=== PATIENT | female | born 1935 | race Caucasian/White ===

== ENCOUNTER 2016-07-12 19:03 | Inpatient (IN) | payer MEDICAID, MEDICARE ==
[~2016-07-12] VITALS: Ht 162.6 cm; Wt 116.3 kg
[~2016-07-12 19:03] MED LIST: ALLO100T PO; AMLO5TAB2 PO; ATEN100T PO; CALC-205 PO; COLA100C PO; COUM1TAB17 PO; FLUT1SPR2; GUAI100S7 PO; HUMA100I5 SC; LANTINJ4 SC; LASI40TA PO; LISI40TAB PO; MILKSUS PO; MIRA3350 PO; OMEG100011 PO; OMEP20CA3 PO; SERT25TA85 PO; TYLE325T5 PO
[2016-07-12] MEDS ORDERED: LEVEMIR (INSULIN DETEMIR) 1 UNITS/0.01ML SC SCH (21:00)
[2016-07-12] MEDS ORDERED: CEFTAROLINE FOSAMIL 600 MG VIAL (TEFLARO) As Ordered ONE (21:18)
[2016-07-12 21:26] LABS: BASO % 0.5 % (0.0-1.0); EOS # 0.4 K/mm3 (0.0-0.50); EOS % 3.7 % (0.0-3.0); LARGE UNSTAINED CELL # 0.2 K/mm3 (0.0-0.4); LARGE UNSTAINED CELL % 1.9 % (0.0-4.0); LYMPH # 3.2 K/mm3 (1.5-4.5); LYMPH % 32.8 % (24.0-44.0); MEAN CORPUSCULAR HEMOGLOBIN 32.6 pg (27.0-33.0); MEAN CORPUSCULAR HGB CONC 32.6 g/dl (32.0-36.5); MEAN CORPUSCULAR VOLUME 99.8 fl (80.0-96.0); MONO # 0.4 K/mm3 (0.0-0.8); MONO % 3.7 % (0.0-5.0); NEUTROPHILS # 5.6 K/mm3 (1.8-7.7); NEUTROPHILS % 57.3 % (36.0-66.0); PLATELET COUNT, AUTOMATED 267 k/mm3 (150-450); RED CELL DISTRIBUTION WIDTH 13.6 % (11.5-14.5); WHITE BLOOD COUNT 9.7 K/mm3 (4.0-10.0)
[2016-07-12 21:42] LABS: CALCIUM LEVEL 8.8 MG/DL (8.8-10.2); CREATININE FOR GFR 2.24 MG/DL (0.55-1.02); GLOMERULAR FILTRATION RATE 22.3 (>32); POTASSIUM SERUM 3.8 MEQ/L (3.5-5.1)
[2016-07-12] MEDS ORDERED: BISACODYL 5 MG TAB PO PRN (21:45)
[2016-07-12] MEDS ORDERED: MORPHINE 2 MG/ML 1ML SYRINGE IV PRN (21:45)
[2016-07-12] MEDS ORDERED: ONDANSETRON 4MG/2ML VIAL (J2405) IV PRN (21:45)
[2016-07-12 21:46] LABS: ERYTHROCYTE SEDIMENTATION RATE 58 mm/hr (0-30)
[2016-07-12] MEDS ORDERED: MORPHINE 4 MG/ML 1ML SYRINGE As Ordered ONE (21:56)
[2016-07-12] MEDS ORDERED: ONDANSETRON 4MG/2ML VIAL (J2405) As Ordered ONE (21:56)
[2016-07-12] MEDS ORDERED: NS 1,000 ML IV ONE (22:00)
[2016-07-12] MEDS ORDERED: ATOR1TAB19 PO (22:14)
[2016-07-12] MEDS ORDERED: ACET50TAOT PO (22:14)
[2016-07-12] MEDS ORDERED: VITA50003 PO (22:14)
[2016-07-12] MEDS ORDERED: CALC1CAP31 PO (22:14)
[2016-07-12] MEDS ORDERED: RANO5TAB PO (22:14)
[2016-07-12] MEDS ORDERED: ATEN50TA2 PO (22:14)
[2016-07-12] MEDS ORDERED: XARE20TA PO (22:14)
[2016-07-12] MEDS ORDERED: DEXTROSE 50% 50 ML SYRINGE IV PRN (22:45)
[2016-07-12] MEDS ORDERED: MOM 30ML SUSPENSION UDC PO PRN (22:45)
[2016-07-12] MEDS ORDERED: GLUCOSE 4 GM CHEW TABLET PO PRN (22:45)
[2016-07-12] MEDS ORDERED: MIRALAX *UNIT DOSE* 17GM PACKET PO PRN (22:45)
[2016-07-12] MEDS ORDERED: GLUCAGON FOR INJ 1 MG VIAL (J1610) SC PRN (22:45)
[2016-07-12] MEDS ORDERED: DOCUSATE SODIUM 100 MG CAP PO PRN (22:45)
[2016-07-13 00:38] VITALS: BP 172/68
--- NOTE | 2016-07-13 00:38 | EDDOCDS ---
Physician Documentation [facility] Name: Roxi Christopher Age: 81 yrs Sex: Female : 1935 Arrival Date: 07/12/2016 Time: 19:03 Bed I4 / M4 Private MD: Karie Adorno Disposition: 07/12/16 21:19 Hospitalization ordered by Cheryl Sosa for Inpatient Admission. Preliminary diagnosis are Cellulitis of left upper limb, Contusion of left hand. - Bed requested for 4 [place]. - Status is Inpatient Admission. kas2 - Condition is Stable. - Problem is new. - Symptoms are unchanged. Historical: - Allergies: no known allergies; - Home Meds: 1. allopurinol 100 mg Oral tab once daily 2. atenolol 50 mg Oral tab 1 tab once daily 3. furosemide 40 mg Oral tab once daily 4. Sertraline 25 mg daily 5. [place]-3 oral cap 2 capsules twice a day 6. Lipitor 10 mg Oral tab once daily 7. Ranexa 500 mg oral Tb12 2 times per day 8. Xarelto 20 mg oral tab once daily 9. Lantus 50-52 units at night Sub-Q 10. Humalog sliding scale subcutaneous soln before each meal 11. colchicine 0.6 mg Oral tab - PMHx: Diabetes - IDDM: controlled; Gout; CHF; Hypertension; "leaky valve"; - PSHx: Knee Arthroplasty, Right; eye implants; - Social history: Smoking status: Patient states former smoker of tobacco. No barriers to communication noted, The patient speaks fluent Urdu, Speaks appropriately for age. - Family history: Not pertinent. - : The pt / caregiver states he / she is on anticoagulants: Xarelto Home medication list is obtained from the patient. - Exposure Risk Screening:: None identified. Vital Signs: 07/12 19:05 BP 207 / 81; Pulse 63; Resp 16; Temp 99.2(O); Pulse Ox 98% ; Weight 113.85 kg / 251 lbs cmb (R); Height 5 ft. 4 in. (162.56 cm) (R); Pain 7/10; 20:50 BP 158 / 78; Temp 97.4(O); ka4 23:03 BP 142 / 60; Pulse 65; Resp 18; Temp 98.0; Pulse Ox 99% on R/A; Pain 2/10; kas2 23:54 BP 138 / 68 LA Supine (man/lg); Pulse 70 MON; Resp 18 S; Temp 98.5(TE); Pulse Ox 98% on ka4 R/A; Pain 6/10; 19:05 Body Mass Index 43.08 (113.85 kg, 162.56 cm) cmb MDM: 20:47 IV Saline Lock ordered. mo1 20:47 -Blood Culture (Adults Only), peripheral from different site, or from device/port/PICC mo1 etc. if present ordered. 20:47 NS 0.9% 1000 ml IV at 250 mL/hr continuous ordered. mo1 20:48 CBC with Diff Ordered. EDMS 20:48 BMP Ordered. EDMS 20:48 CRP Ordered. EDMS 20:48 ESR Ordered. EDMS 20:49 -Blood Culture Ordered. EDMS 20:49 Wound Culture & GS - Most Extremities Ordered. EDMS 20:49 BED REQUEST+ADM ordered. EDMS 20:50 Misc Engineering Technologist Order ordered. mo1 21:00 Financial registration complete. jpb 21:00 [facility] Payment Agreement was scanned into [employer] and attached to record. jpb 21:03 Ceftaroline Fosamil 600 mg IV at bolus once over 30 mins; reconstitute with 20mL NS or mo1 SW, then dilulte in 50mL of NS, D5W or LR ordered. 21:20 Misc Engineering Technologist Order complete. ajs 21:21 -Blood Culture (Adults Only), peripheral from different site, or from device/port/PICC ajs etc. if present complete. 21:21 MRSA SCREEN Ordered. EDMS 21:22 BLOOD CULTURES Ordered. EDMS 21:40 morphine 4 mg IVP once ordered. mo1 21:40 Ondansetron 4 mg IVP once ordered. mo1 21:56 CBC WITH DIFFERENTIAL Ordered. EDMS 21:56 COMPLETE COMPHRENSIVE METABOLI Ordered. EDMS 21:57 PHYSICAL THERAPY EVAL & TREAT ordered. EDMS 21:58 CONSISTENT CARBOHYDRATES ordered. EDMS 23:37 Admission / Observation Status ordered. EDMS 07/13 00:08 C REACTIVE PROTEIN QUANTITATIV Ordered. EDMS Administered Medications: 07/12 21:03 CANCELLED (Other Intervention Used): Piperacillin-Tazobactam 3.375 grams IVPB once over mo1 30 mins; dilute in 50mL of NS or D5W 21:55 Drug: NS 0.9% 1000 ml [sodium chloride 0.9 % intravenous solution] Route: IV; Rate: 250 kas2 mL/hr; Site: right antecubital; 21:55 Drug: Ceftaroline Fosamil 600 mg [ceftaroline fosamil 600 mg intravenous solution] [facility]2 Route: IV; Rate: bolus; Infused Over: 30 mins; Site: right antecubital; 22:06 Drug: morphine 4 mg [morphine 4 mg/mL intravenous cartridge (1 mL)] Route: IVP; Site: kas2 right antecubital; 23:03 Follow up: BP 142 / 60; Pulse 65 bpm; Resp 18 bpm; Temp 98.0; Pulse Ox 99% RA; Pain [facility]2 08/18 Adult; Response: No Adverse Reaction; Pain is decreased 22:06 Drug: Ondansetron 4 mg [ondansetron HCl 2 mg/mL intravenous solution (2 mL)] Route: kas2 IVP; Site: right antecubital; Signatures: Dispatcher [employer] EDMS Janel Hernandez, RN RN Karie Hickey Joel jpb O'Hagan, Michael, PA PA mo1 Matilde MoreauRN Mone Angelo LPN LPN ka4 Rosa Isela Weinberg RN RN [facility]2 The chart was reviewed and I authenticate all verbal orders and agree with the evaluation and treatment provided.Corrections: (The following items were deleted from the chart) 21:03 20:47 Piperacillin-Tazobactam 3.375 grams IVPB once over 30 mins; dilute in 50mL of NS mo1 or D5W ordered. mo1 07/13 00:08 04 22:11 C REACTIVE PROTEIN QUANTITATIV ordered. EDMS EDMS Attachments: 21:00 [facility] [place] Payment Agreement isaac MTDD
--- NOTE | 2016-07-13 00:38 | EDDOCDS ---
Nurse's Notes [facility] Name: Roxi Christopher Age: 81 yrs Sex: Female : 1935 Arrival Date: 07/12/2016 Time: 19:03 Bed I4 / M4 Private MD: Karie Adorno Diagnosis: Cellulitis of left upper limb;Contusion of left hand Presentation: 07/12 19:08 Presenting complaint: Patient states: pt reports falling on [address], injuring ead left hand. Was seen by primary care today and instructed to come here. Pt has swelling, bruising, and and black wound approx 1 inch in diameter to top of left hand. markings around swelling done by primary. Adult Sepsis Screening: The patient does not have new or worsening altered mentation. Patient's respiratory rate is less than 22. Systolic blood pressure is greater than 100. Patient has a qSOFA score of 0- Negative Sepsis Screen. Suicide/Homicide risk assessment- the patient denies having any suicidal and/or homicidal ideations and does not present with any other emotional, behavioral or mental health complaints. Status: Patient is not a guest services coordinator or dependent. Transition of care: patient was not received from another setting of care. 19:08 Acuity: MICHAEL Level 3 ead 19:08 Method Of Arrival: Walkin/Carried/Asstd ead Triage Assessment: 19:14 General: Appears in no apparent distress, Behavior is appropriate for age, cooperative. ead Pain: Location: left hand and left arm Pain currently is 7 out of 10 on a pain scale. Neurological: No deficits noted. Respiratory: Airway is patent Respiratory effort is even, unlabored. Derm: bruising from left hand up left arm. swelling to left hand. closed wound to top of left hand. Musculoskeletal: Swelling present in left hand. Historical: - Allergies: no known allergies; - Home Meds: 1. allopurinol 100 mg Oral tab once daily 2. atenolol 50 mg Oral tab 1 tab once daily 3. furosemide 40 mg Oral tab once daily 4. Sertraline 25 mg daily 5. [place]-3 oral cap 2 capsules twice a day 6. Lipitor 10 mg Oral tab once daily 7. Ranexa 500 mg oral Tb12 2 times per day 8. Xarelto 20 mg oral tab once daily 9. Lantus 50-52 units at night Sub-Q 10. Humalog sliding scale subcutaneous soln before each meal 11. colchicine 0.6 mg Oral tab - PMHx: Diabetes - IDDM: controlled; Gout; CHF; Hypertension; "leaky valve"; - PSHx: Knee Arthroplasty, Right; eye implants; - Social history: Smoking status: Patient states former smoker of tobacco. No barriers to communication noted, The patient speaks fluent Ukrainian, Speaks appropriately for age. - Family history: Not pertinent. - : The pt / caregiver states he / she is on anticoagulants: Xarelto Home medication list is obtained from the patient. - Exposure Risk Screening:: None identified. Screenin:28 Advance Directives: Currently, there is a health care proxy, Kathy Turk ttb Granddaughter/HCP & Daughter/HCP Monik Jones & Mele Candi ---able to receive information however not HCP (Son). 07/13 00:11 Screening information is obtained from the patient. Fall risk: No risks identified. ka4 Assistance ADL's: requires no assistance with activities of daily living. Abuse/DV Screen: The patient / caregiver reports he/she is: not in a situation that causes fear, pain or injury. Nutritional screening: No deficits noted. home support is adequate. Assessment: 07/12 20:14 General: pt updated. Awake and alert. NAD noted. Awaiting PA visit. Family at bedside . ttb 20:37 General: Appears in no apparent distress, comfortable, Behavior is appropriate for age, ka4 cooperative, pleasant. Respiratory: Airway is patent Respiratory effort is even, unlabored, Respiratory pattern is regular, symmetrical. Derm: patients left hand red and swollen. Warm to touch. Large black area on top of hand. Dark purple bruising throughout fingers, hand, and back of arm. 21:53 General: Appears in no apparent distress, uncomfortable, well nourished, well groomed, kas2 Behavior is appropriate for age, cooperative. Pain: Location: left arm and left hand Pain currently is 6 out of 10 on a pain scale. Neurological: Level of Consciousness is awake, alert, Oriented to person, place, time. Cardiovascular: Heart tones present Rhythm is regular. Respiratory: Airway is patent Respiratory effort is even, unlabored, Respiratory pattern is regular, symmetrical, Breath sounds are clear bilaterally. Derm: Skin is intact, is healthy with good turgor, Skin is dry, Skin is pink, warm & dry. normal, Skin temperature is warm. 22:50 General: Patient resting in bed trying to sleep. Appears comfortable. No apparent kas2 distress noted. Call alanis within reach. Will continue to monitor.. 23:55 General: Appears in no apparent distress, uncomfortable, Behavior is appropriate for ka4 age, cooperative, pleasant. General:. Neurological: Level of Consciousness is awake, alert, obeys commands, Oriented to person, place, time. Respiratory: Airway is patent Respiratory effort is even, unlabored, Respiratory pattern is regular, symmetrical. Vital Signs: 19:05 BP 207 / 81; Pulse 63; Resp 16; Temp 99.2(O); Pulse Ox 98% ; Weight 113.85 kg (R); cmb Height 5 ft. 4 in. (162.56 cm) (R); Pain 7/10; 20:50 BP 158 / 78; Temp 97.4(O); ka4 23:03 BP 142 / 60; Pulse 65; Resp 18; Temp 98.0; Pulse Ox 99% on R/A; Pain 2/10; kas2 23:54 BP 138 / 68 LA Supine (man/lg); Pulse 70 MON; Resp 18 S; Temp 98.5(TE); Pulse Ox 98% on ka4 R/A; Pain 6/10; 19:05 Body Mass Index 43.08 (113.85 kg, 162.56 cm) [facility] Vitals: 19:05 Log In Time: July 12, 2016 at 19:03. b ED Course: 19:05 Patient visited by Rhiannon Rodney. cmb 19:05 Karie Adorno is Private Physician. cmb 19:05 Patient moved to Waiting cmb 19:07 Patient moved to Pre RCE cmb 19:09 Triage Initiated ead 19:44 Patient moved to Triage 2 jmb 20:11 Mo Moore PA is PHCP. mo1 20:11 Rip Moore DO is Attending Physician. mo1 20:14 Patient visited by Paty Sullivan RN. ttb 20:14 Patient visited by Paty Sullivan RN. ttb 20:23 Patient moved to I4 / M4 jmb 20:30 Patient visited by Paty Sullivan RN. ttb 20:32 Patient visited by Mo Moore PA. mo1 20:43 Patient visited by Mone Rogers LPN. ka4 21:00 [facility] Payment Agreement was scanned into [employer] and attached to record. jpb 21:13 CBC with Diff Sent. kas2 21:13 BMP Sent. kas2 21:13 -Blood Culture Sent. kas2 21:13 CRP Sent. kas2 21:13 ESR Sent. kas2 21:13 Wound Culture & GS - Most Extremities Sent. kas2 21:14 Patient visited by Rosa Isela Weinberg RN. kas2 21:14 Inserted saline lock: 20 gauge in right antecubital area and blood collected. The kas2 patient tolerated the procedure well. No procedures done that require assistance. 21:19 Cheryl Sosa is Hospitalizing Provider. mo1 21:39 BLOOD CULTURES Sent. ka4 21:55 Patient visited by Rosa Isela Weinberg RN. kas2 23:05 Patient visited by Rosa Isela Weinberg RN. kas2 23:48 Patient visited by Rosa Isela Weinberg RN. kas2 23:54 Patient visited by Rosa Isela Weinberg RN. kas2 23:55 Patient visited by Mone Rogers LPN. ka4 23:56 Patient visited by Mone Rogers LPN. ka4 01 00:11 The patient / caregiver is instructed regarding the plan of care and ED course. Patient ka4 has correct armband on for positive identification. Bed in low position. Call light in reach. Side rails up X 1. 00:11 IV is patent, is intact, is free of redness or swelling. Flushed right antecubital ka4 saline lock w/ 2 ml NS. Administered Medications: 07/12 21:03 CANCELLED (Other Intervention Used): Piperacillin-Tazobactam 3.375 grams IVPB once over mo1 30 mins; dilute in 50mL of NS or D5W :55 Drug: NS 0.9% 1000 ml [sodium chloride 0.9 % intravenous solution] Route: IV; Rate: 250 kas2 mL/hr; Site: right antecubital; :55 Drug: Ceftaroline Fosamil 600 mg [ceftaroline fosamil 600 mg intravenous solution] kas2 Route: IV; Rate: bolus; Infused Over: 30 mins; Site: right antecubital; 22:06 Drug: morphine 4 mg [morphine 4 mg/mL intravenous cartridge (1 mL)] Route: IVP; Site: [facility] right antecubital; 23:03 Follow up: BP 142 / 60; Pulse 65 bpm; Resp 18 bpm; Temp 98.0; Pulse Ox 99% RA; Pain [facility] 08/18 Adult; Response: No Adverse Reaction; Pain is decreased 22:06 Drug: Ondansetron 4 mg [ondansetron HCl 2 mg/mL intravenous solution (2 mL)] Route: kas2 IVP; Site: right antecubital; Order Results: Lab Order: CBC with Diff; SPEC'M 07/12/16 21:16 Test: WHITE BLOOD COUNT; Value: 9.7; Range: 4.0-10.0; Units: K/mm3; Status: F Test: RED BLOOD COUNT; Value: 3.49; Range: 4.00-5.40; Abnormal: Below low normal; Units: M/mm3; Status: F Test: HEMOGLOBIN; Value: 11.4; Range: 12.0-16.0; Abnormal: Below low normal; Units: g/dl; Status: F Test: HEMATOCRIT; Value: 34.8; Range: 36.0-47.0; Abnormal: Below low normal; Units: %; Status: F Test: MEAN CORPUSCULAR VOLUME; Value: 99.8; Range: 80.0-96.0; Abnormal: Above high normal; Units: fl; Status: F Test: MEAN CORPUSCULAR HEMOGLOBIN; Value: 32.6; Range: 27.0-33.0; Units: pg; Status: F Test: MEAN CORPUSCULAR HGB CONC; Value: 32.6; Range: 32.0-36.5; Units: g/dl; Status: F Test: RED CELL DISTRIBUTION WIDTH; Value: 13.6; Range: 11.5-14.5; Units: %; Status: F Test: PLATELET COUNT, AUTOMATED; Value: 267; Range: 150-450; Units: k/mm3; Status: F Test: NEUTROPHILS %; Value: 57.3; Range: 36.0-66.0; Units: %; Status: F Test: LYMPH %; Value: 32.8; Range: 24.0-44.0; Units: %; Status: F Test: MONO %; Value: 3.7; Range: 0.0-5.0; Units: %; Status: F Test: EOS %; Value: 3.7; Range: 0.0-3.0; Abnormal: Above high normal; Units: %; Status: F Test: BASO %; Value: 0.5; Range: 0.0-1.0; Units: %; Status: F Test: LARGE UNSTAINED CELL %; Value: 1.9; Range: 0.0-4.0; Units: %; Status: F Test: NEUTROPHILS #; Value: 5.6; Range: 1.8-7.7; Units: K/mm3; Status: F Test: LYMPH #; Value: 3.2; Range: 1.5-4.5; Units: K/mm3; Status: F Test: MONO #; Value: 0.4; Range: 0.0-0.8; Units: K/mm3; Status: F Test: EOS #; Value: 0.4; Range: 0.0-0.50; Units: K/mm3; Status: F Test: BASO #; Value: 0.0; Range: 0.0-0.2; Units: K/mm3; Status: F Test: LARGE UNSTAINED CELL #; Value: 0.2; Range: 0.0-0.4; Units: K/mm3; Status: F Lab Order: [facility]; SPEC'M 07/12/16 21:16 Test: GLUCOSE, FASTING; Value: 126; Range: 83-110; Abnormal: Above high normal; Units: MG/DL; Status: F Test: BLOOD UREA NITROGEN; Value: 40; Range: 7-18; Abnormal: Above high normal; Units: MG/DL; Status: F Test: CREATININE FOR GFR; Value: 2.24; Range: 0.55-1.02; Abnormal: Above high normal; Units: MG/DL; Status: F Test: GLOMERULAR FILTRATION RATE; Value: 22.3; Range: >32; Abnormal: Below low normal; Status: F Test: SODIUM LEVEL; Value: 145; Range: 136-145; Units: MEQ/L; Status: F Test: POTASSIUM SERUM; Value: 3.8; Range: 3.5-5.1; Units: MEQ/L; Status: F Test: CHLORIDE LEVEL; Value: 108; Range: 98-107; Abnormal: Above high normal; Units: MEQ/L; Status: F Test: CARBON DIOXIDE LEVEL; Value: 26; Range: 21-32; Units: MEQ/L; Status: F Test: ANION GAP; Value: 11; Range: 8-16; Units: MEQ/L; Status: F Test: CALCIUM LEVEL; Value: 8.8; Range: 8.8-10.2; Units: MG/DL; Status: F Test Note: ; Units are mL/min/1.73 m2 Chronic Kidney Disease Staging per NKF: Stage I & II GFR >=60 Normal to Mildly Decreased Stage III GFR 30-59 Moderately Decreased Stage IV GFR 15-29 Severely Decreased Stage V GFR <15 Very Little GFR Left ESRD GFR <15 on F[employer]ER Lab Order: CRP; SPEC'M 07/12/16 21:16 Test: C REACTIVE PROTEIN QUANTITATIV; Value: 7.03; Range: 0.00-0.30; Abnormal: Above high normal; Units: MG/DL; Status: F Lab Order: ESR; SPEC'M 07/12/16 21:16 Test: ERYTHROCYTE SEDIMENTATION RATE; Value: 58; Range: 0-30; Abnormal: Above high normal; Units: mm/hr; Status: F Outcome: 21:19 Decision to Hospitalize by Provider. mo1 07/13 00:11 Discharge Assessment: Patient awake, alert and oriented x 3. No cognitive and/or ka4 functional deficits noted. Patient verbalized understanding of disposition instructions. patient administered narcotics - yes. Patient was admitted to the hospital or transferred to another facility. The following High Risk Discharge criteria are identified: None. Admitted to Med/Surg accompanied by tech, via stretcher. Condition: stable. Property :Personal belongings accompany Pt. 00:11 No special radiology studies were completed. ka4 00:37 Patient left the ED. kas2 Signatures: Braulio Gustafson [place] cmb Conner, Teresa, RN RN ttb O'Hagan, Michael, PA PA mo1 Roger Hilton RN RN jmb Dunaway, Emily, RN RN ead Anderson, Kodie, LPN LPN ka4 Rosa Isela WeinbergRN RN kas2 Corrections: (The following items were deleted from the chart) 07/12 19:16 19:08 Presenting complaint: Patient states: pt reports falling on [address], ead injuring left hand. Was seen by primary care today and instructed to come here. Pt has swelling, bruising, and and black wound approx 1 inch in diameter to top of right hand. markings around swelling done by primary. ead MTDD
[2016-07-13 01:29] VITALS: BP 158/62
[2016-07-13] MEDS: PERCOCET 5MG/325MG TAB PO PRN ×4 (03:19→21:39)
--- NOTE | 2016-07-13 04:10 | HPE ---
DATE OF ADMISSION: 07/12/2016 PRIMARY CARE PHYSICIAN: Dr. Rosie Adorno ROLLER SHOP UTILITY WORKER: Dr. Valadez RAIL OPERATOR: Dr. Johnson CHIEF COMPLAINT: Left hand swelling with lesions. HISTORY OF PRESENT ILLNESS: Ms. Christopher is an 81-year-old female with multiple past medical history who presented to the emergency room (ER) due to experiencing lesions and swelling on the dorsum of the left hand. Patient expressed that the symptoms started about [place] Julianne when she was visiting her daughter. She expressed that she was walking up the steps and porch when she missed a step and fell and the dorsum of her hand hit the chair. At first, it was a small lesion on the dorsum of her left hand; however, it became increased. Patient is also on Xarelto. She expressed that the day after she noticed her fingers started swelling and became dark-colored, almost black. However, the color became associate director of development each day. Patient expressed that she also noticed a small amount of yellowish drainage from the lesion area and sometimes mixed with blood. Patient denies fever, chills, or night sweats. Patient expressed that the swelling started increasing gradually day by day. Patient was seen by primary care who ordered an MRI which was done today. MRI results were consistent with possible infection versus other etiology such as tumor, and primary care asked the patient to come to the ER. Patient expressed that the pain was constant since the trauma; it is 10/10 and patient used acetaminophen to control her pain due to chronic kidney disease. ALLERGIES: SULFASALAZINE. HOME MEDICATIONS: - acetaminophen 1000 mg by mouth every six hours as needed for pain - allopurinol 100 mg by mouth daily - atenolol 50 mg by mouth daily - atorvastatin 10 mg by mouth at bedtime - cholecalciferol 0.25 mcg by mouth daily - Colace 100 mg by mouth twice a day as needed for constipation - vitamin D 50,000 units by mouth once a week on Sunday - Lasix 40 mg by mouth daily - insulin 50 units subcutaneous at bedtime - Humalog sliding scale - Lantus 50 units subcutaneous at bedtime - milk of magnesia as needed for constipation - Butler-3, 1000 mg two caps by mouth twice a day - MiraLAX one pack by mouth daily - Ranexa 500 mg by mouth twice a day - Xarelto 20 mg by mouth at bedtime - sertraline 25 mg by mouth daily PAST MEDICAL HISTORY: 1. Hypercholesterolemia. 2. Gastroesophageal reflux disease (GERD). 3. Diabetes. 4. Hypertension. 5. History of rheumatic fever during childhood. 6. Chronic kidney disease stage 3. 7. Gout. PAST SURGICAL HISTORY: 1. Right knee arthroplasty. 2. Eye implants, right. SOCIAL HISTORY: Patient lives with her son. Patient expressed that she has not drank alcohol or smoked since 1958. Patient denies history of illicit drug use. Patient has not traveled recently outside of the [place]. FAMILY HISTORY: Patient has three sons and two daughters who are healthy for their age. Patient's father due to prostate cancer. Patient's mother due to stomach problems. Patient has one sister who is 89 years old and healthy. REVIEW OF SYSTEMS: GENERAL: Patient denies fevers, chills, night sweats, weight loss or weight gain. HEENT: Patient denies acute vision or hearing changes. Patient also denies problems with chewing food or sinusitis. NECK: Patient denies lumps, bumps, or decreased range of motion of her neck. HEART: Patient denies chest pain, racing or skipping heartbeat, or palpitations. LUNGS: Patient denies coughing, wheezing, or shortness of breath. ABDOMEN: Patient denies melena, hematochezia, hemoptysis, nausea, vomiting. EXTREMITIES: Patient expressed that she has swelling of the dorsum of her left hand, as well as erythema of her left hand and the left forearm posterior side, as well as pain with movement of her fingers. Patient also expressed that she has been experiencing mild numbness and tingling on her fingers of the left hand. Patient also expressed that she has been experiencing mild swelling of her lower extremities. NEURO: Patient denies history of transient ischemic attack (TIA), cerebrovascular accident (CVA), or seizure type activity. PHYSICAL EXAMINATION: VITAL SIGNS: Blood pressure 207/81, pulse 63, respiratory rate 18, temperature 99.2, pulse oximetry 98% on room air. Weight 113.85 kg, height 162.56 cm. Body mass index (BMI) 43.08. GENERAL APPEARANCE: Patient was lying in bed in no acute distress. Patient was awake, alert, and oriented to time, place and person. HEENT: Normocephalic, atraumatic. Pupils are equal. Oral mucosa is moist. NECK: Soft, supple, without lymphadenopathy or thyromegaly. HEART: Patient has a systolic murmur; normal S1, S2, and regular rate and rhythm. LUNGS: Clear breath sounds bilaterally. Good air movement. EXTREMITIES: Patient has pitting edema; however, patient has bilateral pulses in both lower extremities. Patient has swelling of the dorsum of her left hand with erythema of the dorsum of the left hand as well as the first four digits. Patient also has two lesions with scabs; the big one measures 4 cm x 3.5 cm, the other small lesion is 0.5 x 0.5 cm. Patient also has erythema at the posterior and medial surface of the forearm. NEURO: Cranial nerves II-XII was intact. LABORATORY DATA: White blood cells 9.7, red blood cells 3.49, hemoglobin 11.4, hematocrit 34.8, MCV 99.8, MCH 32.6, MCHC 32.6, RDW 13.6, platelet count 267, neutrophil percentage 37.3, lymphocyte percentage 32.8, monocyte percentage 3.8, eosinophil percentage 3.7, basophil percentage 0.5, leukocyte percentage 1.9. Sodium 145, potassium 3.8, chloride 108, carbon dioxide 26, anion gap 11, BUN 40, creatinine 2.24, glomerular filtration rate 22.3, fasting glucose 126, calcium 8.8, C-reactive protein 7.03. Blood culture is pending. MRSA culture is pending. Red cell scan is pending. Wound culture is pending at this time. IMAGING TECHNIQUES: MRI which was performed today at [facility] shows mixed signal mass involving the dorsum of the hand which is 6.4 cm x 1.6 cm x 6.4 cm. This is consistent with clinical suspicion of infection; however, other etiology such as tumor cannot be ruled out. ASSESSMENT AND PLAN: 1. Lesion of the dorsum of the left hand. At this time, we have consulted orthopedics, and appreciate Dr. Skinner's recommendation. Patient does not have leukocytosis; however, patient's C-reactive protein as well as erythrocyte sedimentation rate (ESR) have increased. At this point, MRSA coverage as well as wound culture is pending. Therefore, at this time, I have started the patient on Teflaro at 400 mg IV every 12 hours. Also, we will continue monitoring patient's CBC as well as C-reactive protein. At this time, the patient is stable. Patient does not have active bleeding. 2. Ebaur-xd-[id number] kidney disease. Patient has chronic kidney disease stage 3; however, patient's creatinine today has increased above her normal baseline; this is possibly secondary to dehydration versus medications. At this time, I have stopped Lasix as well as allopurinol. I started the patient on one liter of normal saline at the rate of 75. We will recheck renal function again tomorrow. At this time, the patient is stable. 3. Gout. Patient is on allopurinol; however, I have stopped the allopurinol due to abnormal renal function. At this time, the patient is stable and asymptomatic. 4. Hypertension. Patient was on Lasix; however, I have stopped Lasix due to abnormal renal function. We will continue patient on atenolol 50 mg by mouth daily. 5. Diabetes. We will continue the patient on home dose of Levemir 50 units subcutaneous at bedtime, also we will continue the patient on a consistent carbohydrate diet and sliding scale. 6. Hypercholesterolemia. We will continue the patient on Lipitor 10 mg by mouth at bedtime and Butler-3 fish oil one by mouth twice a day. 7. History of deep vein thrombosis (DVT). The patient was started on Xarelto; however, I have stopped Xarelto due to possibility of procedure, and started the patient on heparin 5000 units subcutaneous every eight hours. 8. History of rheumatic fever. Patient had rheumatic fever when she was young. At this time, the patient is asymptomatic. We will continue to monitor for any abnormal symptoms. 9. Deep vein thrombosis (DVT) prophylaxis. The patient is on heparin subcutaneous. 10. Gastroesophageal reflux disease (GERD). The patient is stable at this time. 11. Depression and anxiety. The patient is on Zoloft 25 mg by mouth daily. 12. Diastolic congestive heart failure. Patient is following with a assembler caterpillar spider. Patient had an echocardiogram which was done in May by her assembler caterpillar spider. Patient was on Lasix; however, I have stopped Lasix due to abnormal kidney function. We will continue the patient on Ranexa 500 mg by mouth twice a day as well as atenolol 50 mg by mouth daily. Patient was on Xarelto; however, I have stopped Xarelto due to possibility of operation. We will continue to monitor the patient for any abnormal symptoms. 13. Constipation. The patient is on bowel regimen. My preceptor for this patient encounter was Dr. Cheryl Sosa. The preceptor was physically present in the building during the encounter and was fully available as needed. All aspects of the patient interview, examination, medical decision making process, and medical care plan development were reviewed and approved by the preceptor. The preceptor is aware and concurs with the plan as stated in the body of this note and will attest to such by his co-signature.
[2016-07-13] MEDS: HEPARIN SOD (PORCINE) 5000 UNITS/ML VIAL SC SCH ×3 (05:23→21:38)
[2016-07-13 06:00] VITALS: BP 142/87
[2016-07-13] MEDS: HumaLOG INSULIN (NovoLOG) PER UNIT SC SCH ×4 (07:30→20:56)
[2016-07-13 07:34] LABS: BASO % 0.6 % (0.0-1.0); EOS # 0.4 K/mm3 (0.0-0.50); EOS % 4.2 % (0.0-3.0); LARGE UNSTAINED CELL # 0.3 K/mm3 (0.0-0.4); LARGE UNSTAINED CELL % 2.8 % (0.0-4.0); LYMPH # 3.8 K/mm3 (1.5-4.5); LYMPH % 40.3 % (24.0-44.0); MEAN CORPUSCULAR HEMOGLOBIN 32.5 pg (27.0-33.0); MEAN CORPUSCULAR HGB CONC 32.1 g/dl (32.0-36.5); MEAN CORPUSCULAR VOLUME 101.2 fl (80.0-96.0); MONO # 0.6 K/mm3 (0.0-0.8); MONO % 5.9 % (0.0-5.0); NEUTROPHILS # 4.4 K/mm3 (1.8-7.7); NEUTROPHILS % 46.2 % (36.0-66.0); PLATELET COUNT, AUTOMATED 217 k/mm3 (150-450); RED CELL DISTRIBUTION WIDTH 13.5 % (11.5-14.5); WHITE BLOOD COUNT 9.5 K/mm3 (4.0-10.0)
[2016-07-13 08:05] LABS: ALBUMIN 2.7 GM/DL (3.2-5.2); ALBUMIN/GLOBULIN RATIO 0.9 (1.00-1.93); BILIRUBIN,TOTAL 0.5 MG/DL (0.2-1.0); CALCIUM LEVEL 8.1 MG/DL (8.8-10.2); CREATININE FOR GFR 1.95 MG/DL (0.55-1.02); GLOMERULAR FILTRATION RATE 26.2 (>32); POTASSIUM SERUM 3.9 MEQ/L (3.5-5.1); TOTAL PROTEIN 5.7 GM/DL (6.4-8.2)
[2016-07-13] MEDS ORDERED: FUROSEMIDE 40 MG TAB PO SCH (09:00)
[2016-07-13] MEDS: CALCITRIOL 0.25 MCG CAP (S0169) PO SCH (10:14)
[2016-07-13] MEDS: CEFTAROLINE FOSAMIL 300 MG in D5W MINI-BAG PLUS 50 ML IV SCH ×2 (10:16→21:39)
[2016-07-13] MEDS: ATENOLOL 50 MG TAB PO SCH (10:16)
[2016-07-13] MEDS: SERTRALINE HCL 25 MG TABLET PO SCH (10:16)
[2016-07-13] MEDS: OMEGA-3 1050MG CAPSULE PO SCH ×2 (10:16→21:39)
--- NOTE | 2016-07-13 11:53 | CR ---
DATE OF CONSULTATION: 07/13/2016 CHIEF COMPLAINT: Left hand pain and swelling. HISTORY OF PRESENT ILLNESS: On 07/01/2016, Mrs. Christopher fell while entering her daughter's home. She hit the dorsal surface of her hand on a chair and sustained a small abrasion. She reports that over the next few days, she noticed a significant increase in swelling diffusely throughout her hand, fingers and wrist. She reports over the next couple of days, her hand became dark colored, almost black and the wound increased in size. She reported to her primary certified social workers in health care and an MRI was ordered for further evaluation. She reported to the emergency room on 2016 at the request of her primary certified social workers in health care and was admitted. Patient was started on IV antibiotics pending cultures. MEDICATIONS: - acetaminophen - allopurinol - atenolol - atorvastatin - cholecalciferol - Colace - vitamin D - Lasix - Lantus insulin - Humalog - Zoloft - Xarelto - Ranexa - [place] 3 vitamins - MiraLax - milk of magnesia as needed ALLERGIES: SULFASALAZINE. PAST MEDICAL HISTORY: Hypertension. Hyperlipidemia. Diastolic congestive heart failure. Chronic kidney disease. Gout. Diabetes. Anxiety and depression. Constipation. Gastroesophageal reflux disease (GERD). SURGICAL HISTORY: Right total knee arthroplasty (TKA). Right eye surgery. SOCIAL HISTORY: Patient has not used tobacco or alcohol in over 50 years. FAMILY HISTORY: Noncontributory. REVIEW OF SYSTEMS: Patient denies fevers, chills, nausea, vomiting or diarrhea. She denies any night sweats or changes in weight. No chest pain, shortness of breath, lightheaded or dizziness. Patient does have swelling and pain with erythema and ecchymosis to the dorsal surface of her left hand with mild tingling in those fingers. EXAMINATION: General appearance: Patient lying in bed and appears to be in no acute distress. She was comfortable, awake, alert, oriented. Patient was pleasant during visit. Head: Normocephalic Neck: Soft. No evidence of lymphadenopathy. Heart: Regular rate and rhythm with a systolic murmur. Lungs: Clear to auscultation bilaterally. No rales or wheezes noted. Extremities: Inspection of the left hand does show an approximately 4 x 4.5 area of eschar on the dorsal surface of the hand. There is no drainage noted from that site. There is some surrounding erythema and ecchymosis. Patient does have swelling from the fingertips up into the wrist at this time. She also had ecchymosis extending up the posterior forearm. Patient is able to move her wrist. She is able to move all of her fingers. Her capillary refill is right around 2 seconds. Her sensation is overall intact. The patient does have mild pitting edema to the bilateral lower extremities but normal pulses were palpated. LABORATORY DATA: Complete blood count: WBC is 9.5, red blood cell is 3.14. Hemoglobin 10.2, hematocrit 31.8. MCV 101.2, MCH 32.5, MCHC 32.1, RDW 13.5. Platelets 217. Neutrophil percent 46.2, lymphocyte percent 40.3, monocyte percent 5.9, eosinophil percent 4.2, basophil percent 0.6. Neutrophil number 4.4, lymphocyte number 3.8, monocyte number 0.6, eosinophil number 0.4, basophil number 0. Erythrocyte sedimentation rate 58. Comprehensive metabolic panel: Sodium 144, potassium 3.9, chloride 110, carbon dioxide 23, anion gap 11, BUN 37 , creatinine 1.95, glomerular filtration rate 26.2, fasting glucose 58, calcium 8.1, total bilirubin 0.5. AST 20, ALT 21, alkaline phosphatase 45, C-reactive protein 5.94, total protein 5.7, albumin 2.7, albumin globulin ratio 0.90. Wound culture gram stain shows few WBCs, no organism seen. Blood culture and Methicillin-resistant staphylococcus aureus (MRSA) screen currently pending. IMAGING: MRI performed at [facility] revealed mixed signal mass involving the dorsum of the hand which is 6.4 cm x 1.6 cm x 6.4 cm. This is consistent with clinical suspicion of infection, however, other etiology such as tumor cannot be ruled out. IMPRESSION: Lesion to the dorsal surface of the left hand with surrounding edema , erythema and ecchymosis. RECOMMENDATIONS: We will obtain x-rays of the left hand for further evaluation as they have not been done at this time. Patient will also continue with her broad coverage antibiotic while wound culture and Methicillin-resistant staphylococcus aureus (MRSA) culture are pending. I will discuss case with our campus monitor surgeon for further recommendations. JAVI
--- NOTE | 2016-07-13 12:11 | REP ---
LEFT WRIST: Four views left wrist performed. There is no evidence of acute fracture or dislocation. Diffuse mild spurring is seen of the distal radius and ulna and there is moderate joint space narrowing and subchondral sclerosis at the radiocarpal joint and distal radioulnar joint. There is mild diffuse joint space narrowing of the intercarpal joints with cystic changes in the scaphoid and lunate bones as well as the capitate and trapezium. There is no acute fracture or dislocation. IMPRESSION: No acute fracture or dislocation. 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 Signed by Ascencion Cota MD 07/13/2016 03:21 P
--- NOTE | 2016-07-13 12:13 | REP ---
LEFT HAND SERIES: Four views of the left hand are performed. I see no evidence of acute fracture or dislocation. There is moderate diffuse intercarpal joint space narrowing. There is mild diffuse narrowing of the metacarpophalangeal joints and interphalangeal joints with scattered spurring seen at the margins of the distal interphalangeal joints. There is significant soft tissue swelling dorsal to the metacarpals. IMPRESSION: No acute fracture or dislocation. Diffuse degenerative changes. Significant soft tissue swelling dorsal to the metacarpals. Signed by Ascencion Cota MD 07/13/2016 03:21 P
[2016-07-13] MEDS: RANOLAZINE 500 MG ER TAB PO SCH ×2 (12:27→21:38)
[2016-07-13 14:00] VITALS: BP 128/52
--- NOTE | 2016-07-13 17:32 | ECGEPIP ---
Stationary ECG Study [facility] Test Date: 2016-07-13 Pat Name: JOSÉ ANTONIO ANDERS Department: Room: [place] [address] Gender: F Film Processor: VINICIO : 1935 Requested By: MARY GARZA Order Number: [id number] Reading MD: Ryan Kyle Measurements Intervals [place] Rate: 66 P: 48 VA: 217 QRS: 7 QRSD: 90 T: 132 QT: 407 QTc: 427 Interpretive Statements NORMAL SINUS RHYTHM LA CONDUCTION DISTURBANCE FIRST DEGREE AV BLOCK NONSPECIFIC ST/T WAVE ABNORMALITIES NEW FROM 12/22/14 CLINICAL CORRELATION ADVISED RULE OUT MYOCARDIAL ISCHEMIA Electronically Signed On 07-13-2016 17:32:10 EST by Ryan Kyle
--- NOTE | 2016-07-13 18:00 | IPN ---
DATE: 07/13/2016 The patient is seen and examined. No acute events overnight. Continues to report left hand swelling and pain with warmth. Denies any fevers or chills. Denies any chest pain, pressure or discomfort. VITAL SIGNS: Temperature 97.2, pulse 63, respirations 20, blood pressure 120/52, pulse oximetry 94% on room air. LABORATORY DATA: WBC 9.5, hemoglobin and hematocrit 10.2/31.8, platelets 217. Chemistry: Sodium 144, potassium 3.9, chloride 110, bicarbonate 24, BUN 37, creatinine 1.95. PHYSICAL EXAMINATION: GENERAL: The patient is comfortable, in no acute distress. Alert and oriented times three. HEENT: Normocephalic, atraumatic. Pupils equal, round and reactive. Neck supple. CARDIAC: Systolic murmur 2/6. As per patient, is old. Regular rate and rhythm. Normal S1, S2. PULMONARY: Bilaterally clear to auscultation. ABDOMEN: Soft, nontender. Positive bowel sounds. EXTREMITIES: Left upper extremity, radial and ulnar pulses intact. Limited dexterity secondary to significant dorsal hand swelling. Extremities are warm bilaterally. Significant swelling and hard mass measured about 5 cm. Erythema and warmth. ASSESSMENT AND PLAN: This is an 81-year-old female patient with underlying medical history of dyslipidemia, gastroesophageal reflux disease (GERD), insulin-dependent diabetes, chronic kidney disease stage III, hypertension, history of rheumatic fever, gout, who was sent by primary care provider to the hospital with progressively worsening left hand, dorsum hand swelling and warmth. 1. Left hand, dorsum lesion with swelling. Possible cellulitis. Orthopedics consulted. X-ray has been done. Further followup as per orthopedic surgeon. Followup cultures. ESR, C-reactive protein. Antibiotic, the patient is on Teflaro. Continue to monitor. Holding anticoagulation given the possibility of hematoma and surgery. 2. Acute on chronic renal failure, baseline chronic kidney disease stage III. IV fluids initially given. BUN and creatinine has improved. Followup BUN and creatinine. Renally dose medications. Holding Lasix, as well as spironolactone. 3. Gout. Outpatient followup. Holding spironolactone given kidney function elevation. 4. Hypertension. Monitor blood pressure. Continue blood pressure medications. 5. History of deep vein thrombosis (DVT). As per patient, the patient had a DVT in 2014 and was on Xarelto for anticoagulation. Left hand swelling due to hematoma from injury. Given the patient is on anticoagulation along with worsening kidney function. Holding anticoagulation at this time. We will obtain ultrasound Doppler of bilateral lower extremities to rule out DVT. Obtain further records from primary care provider. If the patient elects to continue anticoagulation, we will consider alternative agents via Coumadin. In the meantime, we will continue to monitor. If ultrasound Doppler is positive for DVT, then patient will need heparin drip versus an IVC filter. In the meantime, we will continue to monitor. 6. Insulin-dependent diabetes. Reduce terminal worker insulin dosage given the patient with worsening kidney function. Followup fingersticks. Continue Levemir and mealtime insulin as per protocol. 7. Dyslipidemia. Continue statin. 8. History of rheumatic fever. Outpatient followup. 9. Gastroesophageal reflux disease (GERD). Continue home medications. 10. Depression and anxiety. Continue home medications. 11. Diastolic congestive heart failure (CHF). The patient is currently euvolemic. Continue Ranexa and atenolol. Outpatient followup. We will monitor strict input and output and daily weight. Diuretics on hold given worsening kidney function. 12. Gastroesophageal reflux disease (GERD). Continue home medications. 13. Constipation. Bowel regimen as prescribed. 14. DVT prophylaxis. Followup ultrasound Doppler. Currently on heparin subcutaneously for DVT prophylaxis. DISPOSITION PLANNING: Pending orthopedic followup, clinical improvement, followup C-reactive protein.
[2016-07-13] MEDS: LEVEMIR (INSULIN DETEMIR) 1 UNITS/0.01ML SC SCH (21:39)
[2016-07-13] MEDS: ATORVASTATIN 10 MG TAB PO SCH (21:39)
[2016-07-13 22:00] VITALS: BP 142/55
[2016-07-14] VITALS (9 sets, daily range): BP systolic 122–168; BP diastolic 48–81
[2016-07-14 07:29] LABS: BASO % 0.6 % (0.0-1.0); EOS # 0.2 K/mm3 (0.0-0.50); EOS % 2.8 % (0.0-3.0); LARGE UNSTAINED CELL # 0.2 K/mm3 (0.0-0.4); LYMPH # 2.9 K/mm3 (1.5-4.5); LYMPH % 30.7 % (24.0-44.0); MEAN CORPUSCULAR HEMOGLOBIN 31.7 pg (27.0-33.0); MEAN CORPUSCULAR HGB CONC 31.5 g/dl (32.0-36.5); MEAN CORPUSCULAR VOLUME 100.6 fl (80.0-96.0); MONO # 0.6 K/mm3 (0.0-0.8); MONO % 6.3 % (0.0-5.0); NEUTROPHILS # 5.1 K/mm3 (1.8-7.7); NEUTROPHILS % 57.7 % (36.0-66.0); PLATELET COUNT, AUTOMATED 199 k/mm3 (150-450); WHITE BLOOD COUNT 8.8 K/mm3 (4.0-10.0)
[2016-07-14] MEDS: HumaLOG INSULIN (NovoLOG) PER UNIT SC SCH ×4 (07:30→21:00)
--- NOTE | 2016-07-14 07:56 | REPUSA ---
CLINICAL HISTORY: R/o DVT. COMMENTS: Real time sonography with duplex doppler of the extremities bilaterally was performed with attention to the major deep venous structures. Evaluation reveals the common femoral, superficial femoral, popliteal and posterior tibial veins bila terally to be completely compressible without intraluminal thrombus. There is normal spontaneous phas ic flow and augmentation in all deep veins. The greater saphenous/common femoral vein junctions are p atent bilaterally. Incidental note is made of a left Begum's cyst measures 3.6 cm. IMPRESSION: No evidence of DVT in the lower extremities bilaterally. Left Begum's cyst. Thank you for your kind referral of this patient.
[2016-07-14 08:02] LABS: ALBUMIN 2.4 GM/DL (3.2-5.2); ALBUMIN/GLOBULIN RATIO 0.89 (1.00-1.93); BILIRUBIN,TOTAL 0.3 MG/DL (0.2-1.0); CREATININE FOR GFR 2.16 MG/DL (0.55-1.02); GLOMERULAR FILTRATION RATE 23.3 (>32); POTASSIUM SERUM 4.3 MEQ/L (3.5-5.1); TOTAL PROTEIN 5.1 GM/DL (6.4-8.2)
[2016-07-14] MEDS: RANOLAZINE 500 MG ER TAB PO SCH ×2 (08:33→23:00)
[2016-07-14] MEDS: CALCITRIOL 0.25 MCG CAP (S0169) PO SCH (08:34)
[2016-07-14] MEDS: CEFTAROLINE FOSAMIL 300 MG in D5W MINI-BAG PLUS 50 ML IV SCH ×2 (08:34→23:01)
[2016-07-14] MEDS: SERTRALINE HCL 25 MG TABLET PO SCH (08:34)
[2016-07-14] MEDS: OMEGA-3 1050MG CAPSULE PO SCH ×2 (08:34→23:00)
[2016-07-14] MEDS: ATENOLOL 50 MG TAB PO SCH (08:34)
[2016-07-14] MEDS: SENOKOT S TAB PO SCH ×2 (14:37→23:00)
[2016-07-14] MEDS ORDERED: BUPIVACAINE/EPIN 0.25% 30 ML VIAL As Ordered ONE (16:04)
[2016-07-14] MEDS ORDERED: ceFAZolin 1GM INJ (J0690) As Ordered ONE (16:04)
[2016-07-14] MEDS ORDERED: ceFAZolin 1GM INJ (J0690) IR ONE (16:30)
[2016-07-14] MEDS ORDERED: BUPIVACAINE/EPIN 0.25% 30 ML VIAL XX ONE (16:30)
[2016-07-14] MEDS ORDERED: PROPOFOL 200 MG/20 ML VIAL As Ordered ONE ×2 (16:31→16:34)
[2016-07-14] MEDS ORDERED: LIDOCAINE 2% INJ 100 MG/5 ML SDV (FOR ANES.) As Ordered ONE (16:31)
[2016-07-14] MEDS ORDERED: MIDAZOLAM INJ 2 MG/2 ML VIAL (J2250) As Ordered ONE (16:31)
[2016-07-14] MEDS ORDERED: KETAMINE HCL 200 MG/20 ML VIAL As Ordered ONE (16:31)
[2016-07-14] MEDS ORDERED: fentaNYL 100 MCG/2 ML INJECTION (J3010) As Ordered ONE ×2 (16:31→16:56)
[2016-07-14] MEDS ORDERED: PERCOCET 5MG/325MG TAB As Ordered ONE (16:56)
[2016-07-14] MEDS ORDERED: LR 1,000 ML IV SCH (17:15)
[2016-07-14] MEDS ORDERED: PERCOCET 5MG/325MG TAB PO PRN ×2 (17:15)
[2016-07-14] MEDS ORDERED: fentaNYL 100 MCG/2 ML INJECTION (J3010) IV PRN (17:15)
--- NOTE | 2016-07-14 17:53 | IPN ---
DATE: 07/14/2016 Patient seen and examined. No acute events overnight. Continues to report left hand pain. Denies any fevers or chills. Denies any chest pain, pressure or discomfort. Patient nothing by mouth for operating room (OR). VITAL SIGNS: Temperature 97.6, pulse 85, respirations 16, blood pressure 158/69, pulse oximetry 93% on room air. LABORATORY DATA: WBC 8.8, hemoglobin and hematocrit 9.2 over 29.2, platelets 199. Chemistry: Sodium 142, potassium 4.3, chloride 109, bicarbonate 24, BUN 35, creatinine 2.16. C-reactive protein 7.4. PHYSICAL EXAMINATION: GENERAL: Patient is comfortable, in no acute distress. Alert and oriented times three. HEENT: Normocephalic, atraumatic. Pupils equal, round and reactive. NECK: Supple. CARDIAC: 2/6 systolic murmur. Per patient, was old. Regular rate and rhythm. Normal S1, S2. PULMONARY: Bilaterally clear to auscultation. ABDOMEN: Soft, nontender. Positive bowel sounds. EXTREMITIES: Left upper extremity is swollen dorsal surface, with swelling, erythema and eschar, swollen, mass measuring about 5-6 cm in diameter with a large eschar. Radial and ulnar pulses intact. Sensation intact. Able to move all her fingers with some limitation due to swelling. ASSESSMENT AND PLAN: This is an 81-year-old female patient with underlying medical history of dyslipidemia, gastroesophageal reflux disease (GERD), insulin-dependent diabetes, chronic kidney disease, stage III, hypertension, history of rheumatic fever, gout, was sent by primary care provider to hospital with progressive worsening left dorsum hand swelling and warmth with also recent injury to the left hand. Problems: 1. Left hand dorsum injury and swelling. Possible cellulitis with possible underlying hematoma. Orthopedics consulted. Going to operating room today. The case was discussed with Dr. Dwayne Simmons. Likely hematoma. Cultures have been sent. If eschar does not improve, possibly need plastic surgery. Otherwise the patient is scheduled to followup with Dr. Simmons in 5-7 days in the office. Followup CRP, ESR. Antibiotics as ordered. Followup cultures. Hold anticoagulation given hematoma. 2. Acute on chronic renal failure. Baseline chronic kidney disease, stage III. IV fluids initially given. Followup BUN and creatinine. Renally dose medication. Withholding Lasix as well as spironolactone. Will continue to follow. 3. Gout. Outpatient followup. Withholding allopurinol given elevated kidney function. Restart if needed. 4. Hypertension. Continue blood pressure medications. Monitor blood pressure. 5. History of deep vein thrombosis (DVT). Ultrasound Doppler negative for DVT. The patient has DVT since 2014 and was on Xarelto for anticoagulation. Left hand swelling is possibly due to hematoma from injury. Given that the patient had anticoagulation for more than a year and this is the first episode of DVT with as per patient, prolonged inability as inciting event, will hold Xarelto for now. Currently ultrasound Doppler is negative for DVT. Will need outpatient followup to consider if the patient needs long-term anticoagulation. 6. Insulin-dependent diabetes. Dosage has been adjusted. Followup fingersticks. Continue basal bolus insulin. 7. Dyslipidemia. Continue statin. 8. History of rheumatic fever. Outpatient followup. 9. Gastroesophageal reflux disease (GERD). Continue home medication. 10. Depression and anxiety. Continue home medication. 11. Diastolic congestive heart failure. Patient currently euvolemic. Continue Ranexa and atenolol. Outpatient followup. Monitor strict intake and output, daily weight. Diuretic has been on hold given worsening kidney function. 12. Constipation. Bowel regimen as prescribed. 13. Deep vein thrombosis (DVT) prophylaxis. Heparin subcu. DISPOSITION PLANNING: Pending cultures, clinical improvement, likely discharge in the next 2-3 days and orthopedic followup for wound care.
[2016-07-14] MEDS: ATORVASTATIN 10 MG TAB PO SCH (23:00)
[2016-07-14] MEDS: ACETAMINOPHEN TAB 650MG DOSE (2X325MG) PO PRN (23:00)
[2016-07-14] MEDS: LEVEMIR (INSULIN DETEMIR) 1 UNITS/0.01ML SC SCH (23:01)
[2016-07-15] VITALS (8 sets, daily range): BP systolic 102–171; BP diastolic 49–77
--- NOTE | 2016-07-15 01:38 | EDDOCDS ---
Physician Documentation [facility] Name: Roxi Christopher Age: 81 yrs Sex: Female : 1935 Arrival Date: 07/12/2016 Time: 19:03 Bed I4 / M4 Private MD: Karie Adorno Disposition: 07/12/16 21:19 Hospitalization ordered by Cheryl Sosa for Inpatient Admission. Preliminary diagnosis are Cellulitis of left upper limb, Contusion of left hand. - Bed requested for 4 [place]. - Status is Inpatient Admission. kas2 - Condition is Stable. - Problem is new. - Symptoms are unchanged. Historical: - Allergies: no known allergies; - Home Meds: 1. allopurinol 100 mg Oral tab once daily 2. atenolol 50 mg Oral tab 1 tab once daily 3. furosemide 40 mg Oral tab once daily 4. Sertraline 25 mg daily 5. Scalf-3 oral cap 2 capsules twice a day 6. Lipitor 10 mg Oral tab once daily 7. Ranexa 500 mg oral Tb12 2 times per day 8. Xarelto 20 mg oral tab once daily 9. Lantus 50-52 units at night Sub-Q 10. Humalog sliding scale subcutaneous soln before each meal 11. colchicine 0.6 mg Oral tab - PMHx: Diabetes - IDDM: controlled; Gout; CHF; Hypertension; "leaky valve"; - PSHx: Knee Arthroplasty, Right; eye implants; - Social history: Smoking status: Patient states former smoker of tobacco. No barriers to communication noted, The patient speaks fluent Welsh, Speaks appropriately for age. - Family history: Not pertinent. - : The pt / caregiver states he / she is on anticoagulants: Xarelto Home medication list is obtained from the patient. - Exposure Risk Screening:: None identified. Vital Signs: 07/12 19:05 BP 207 / 81; Pulse 63; Resp 16; Temp 99.2(O); Pulse Ox 98% ; Weight 113.85 kg / 251 lbs cmb (R); Height 5 ft. 4 in. (162.56 cm) (R); Pain 7/10; 20:50 BP 158 / 78; Temp 97.4(O); ka4 23:03 BP 142 / 60; Pulse 65; Resp 18; Temp 98.0; Pulse Ox 99% on R/A; Pain 2/10; kas2 23:54 BP 138 / 68 LA Supine (man/lg); Pulse 70 MON; Resp 18 S; Temp 98.5(TE); Pulse Ox 98% on ka4 R/A; Pain 6/10; 19:05 Body Mass Index 43.08 (113.85 kg, 162.56 cm) cmb MDM: 20:47 IV Saline Lock ordered. mo1 20:47 -Blood Culture (Adults Only), peripheral from different site, or from device/port/PICC mo1 etc. if present ordered. 20:47 NS 0.9% 1000 ml IV at 250 mL/hr continuous ordered. mo1 20:48 CBC with Diff Ordered. EDMS 20:48 BMP Ordered. EDMS 20:48 CRP Ordered. EDMS 20:48 ESR Ordered. EDMS 20:49 -Blood Culture Ordered. EDMS 20:49 Wound Culture & GS - Most Extremities Ordered. EDMS 20:49 BED REQUEST+ADM ordered. EDMS 20:50 Misc Director Field Services Order ordered. mo1 21:00 Financial registration complete. jpb 21:00 [facility] Payment Agreement was scanned into ITN and attached to record. jpb 21:03 Ceftaroline Fosamil 600 mg IV at bolus once over 30 mins; reconstitute with 20mL NS or mo1 SW, then dilulte in 50mL of NS, D5W or LR ordered. 21:20 Misc Director Field Services Order complete. ajs 21:21 -Blood Culture (Adults Only), peripheral from different site, or from device/port/PICC ajs etc. if present complete. 21:21 MRSA SCREEN Ordered. EDMS 21:22 BLOOD CULTURES Ordered. EDMS 21:40 morphine 4 mg IVP once ordered. mo1 21:40 Ondansetron 4 mg IVP once ordered. mo1 21:56 CBC WITH DIFFERENTIAL Ordered. EDMS 21:56 COMPLETE COMPHRENSIVE METABOLI Ordered. EDMS 21:57 PHYSICAL THERAPY EVAL & TREAT ordered. EDMS 21:58 CONSISTENT CARBOHYDRATES ordered. EDMS 23:37 Admission / Observation Status ordered. EDMS 07/13 00:08 C REACTIVE PROTEIN QUANTITATIV Ordered. EDMS 07/14 08:44 T-Sheet-- Draft Copy was scanned into ITN and attached to record. gb Administered Medications: 07/12 21:03 CANCELLED (Other Intervention Used): Piperacillin-Tazobactam 3.375 grams IVPB once over mo1 30 mins; dilute in 50mL of NS or D5W 21:55 Drug: NS 0.9% 1000 ml [sodium chloride 0.9 % intravenous solution] Route: IV; Rate: 250 kas2 mL/hr; Site: right antecubital; 21:55 Drug: Ceftaroline Fosamil 600 mg [ceftaroline fosamil 600 mg intravenous solution] [facility] Route: IV; Rate: bolus; Infused Over: 30 mins; Site: right antecubital; 22:06 Drug: morphine 4 mg [morphine 4 mg/mL intravenous cartridge (1 mL)] Route: IVP; Site: kas2 right antecubital; 23:03 Follow up: BP 142 / 60; Pulse 65 bpm; Resp 18 bpm; Temp 98.0; Pulse Ox 99% RA; Pain [facility] 08/18 Adult; Response: No Adverse Reaction; Pain is decreased 22:06 Drug: Ondansetron 4 mg [ondansetron HCl 2 mg/mL intravenous solution (2 mL)] Route: kas2 IVP; Site: right antecubital; Signatures: Dispatcher [employer] EDMS Janel Hernandez RN RN daq Barnhardt, Gloria, Karie Hu Joel jpb O'Hagan, Michael, PA PA mo1 Matilde Moreau RN RN ead Anderson, Kodie, LPN LPN ka4 Smith, Kim, RN RN kas2 The chart was reviewed and I authenticate all verbal orders and agree with the evaluation and treatment provided.Corrections: (The following items were deleted from the chart) 21:03 20:47 Piperacillin-Tazobactam 3.375 grams IVPB once over 30 mins; dilute in 50mL of NS mo1 or D5W ordered. mo1 07/13 00:08 07/12 22:11 C REACTIVE PROTEIN QUANTITATIV ordered. EDMS EDMS Attachments: 21:00 [facility] Payment Agreement jpb 07/14 08:44 T-Sheet-- Draft Copy gb Chart Complete MTDD
--- NOTE | 2016-07-15 01:39 | EDDOCDS ---
Physician Documentation [facility] Name: Roxi Christopher Age: 81 yrs Sex: Female : 1935 Arrival Date: 07/12/2016 Time: 19:03 Bed I4 / M4 Private MD: Karie Adorno Disposition: 07/12/16 21:19 Hospitalization ordered by Cheryl Sosa for Inpatient Admission. Preliminary diagnosis are Cellulitis of left upper limb, Contusion of left hand. - Bed requested for 4 [place]. - Status is Inpatient Admission. kas2 - Condition is Stable. - Problem is new. - Symptoms are unchanged. Historical: - Allergies: no known allergies; - Home Meds: 1. allopurinol 100 mg Oral tab once daily 2. atenolol 50 mg Oral tab 1 tab once daily 3. furosemide 40 mg Oral tab once daily 4. Sertraline 25 mg daily 5. [place]-3 oral cap 2 capsules twice a day 6. Lipitor 10 mg Oral tab once daily 7. Ranexa 500 mg oral Tb12 2 times per day 8. Xarelto 20 mg oral tab once daily 9. Lantus 50-52 units at night Sub-Q 10. Humalog sliding scale subcutaneous soln before each meal 11. colchicine 0.6 mg Oral tab - PMHx: Diabetes - IDDM: controlled; Gout; CHF; Hypertension; "leaky valve"; - PSHx: Knee Arthroplasty, Right; eye implants; - Social history: Smoking status: Patient states former smoker of tobacco. No barriers to communication noted, The patient speaks fluent Ukrainian, Speaks appropriately for age. - Family history: Not pertinent. - : The pt / caregiver states he / she is on anticoagulants: Xarelto Home medication list is obtained from the patient. - Exposure Risk Screening:: None identified. Vital Signs: 07/12 19:05 BP 207 / 81; Pulse 63; Resp 16; Temp 99.2(O); Pulse Ox 98% ; Weight 113.85 kg / 251 lbs cmb (R); Height 5 ft. 4 in. (162.56 cm) (R); Pain 7/10; 20:50 BP 158 / 78; Temp 97.4(O); ka4 23:03 BP 142 / 60; Pulse 65; Resp 18; Temp 98.0; Pulse Ox 99% on R/A; Pain 2/10; kas2 23:54 BP 138 / 68 LA Supine (man/lg); Pulse 70 MON; Resp 18 S; Temp 98.5(TE); Pulse Ox 98% on ka4 R/A; Pain 6/10; 19:05 Body Mass Index 43.08 (113.85 kg, 162.56 cm) cmb MDM: 20:47 IV Saline Lock ordered. mo1 20:47 -Blood Culture (Adults Only), peripheral from different site, or from device/port/PICC mo1 etc. if present ordered. 20:47 NS 0.9% 1000 ml IV at 250 mL/hr continuous ordered. mo1 20:48 CBC with Diff Ordered. EDMS 20:48 BMP Ordered. EDMS 20:48 CRP Ordered. EDMS 20:48 ESR Ordered. EDMS 20:49 -Blood Culture Ordered. EDMS 20:49 Wound Culture & GS - Most Extremities Ordered. EDMS 20:49 BED REQUEST+ADM ordered. EDMS 20:50 Misc Bookkeeping Machine Mechanic Order ordered. mo1 21:00 Financial registration complete. jpb 21:00 [facility] Payment Agreement was scanned into [employer] and attached to record. jpb 21:03 Ceftaroline Fosamil 600 mg IV at bolus once over 30 mins; reconstitute with 20mL NS or mo1 SW, then dilulte in 50mL of NS, D5W or LR ordered. 21:20 Misc Bookkeeping Machine Mechanic Order complete. ajs 21:21 -Blood Culture (Adults Only), peripheral from different site, or from device/port/PICC ajs etc. if present complete. 21:21 MRSA SCREEN Ordered. EDMS 21:22 BLOOD CULTURES Ordered. EDMS 21:40 morphine 4 mg IVP once ordered. mo1 21:40 Ondansetron 4 mg IVP once ordered. mo1 21:56 CBC WITH DIFFERENTIAL Ordered. EDMS 21:56 COMPLETE COMPHRENSIVE METABOLI Ordered. EDMS 21:57 PHYSICAL THERAPY EVAL & TREAT ordered. EDMS 21:58 CONSISTENT CARBOHYDRATES ordered. EDMS 23:37 Admission / Observation Status ordered. EDMS 07/13 00:08 C REACTIVE PROTEIN QUANTITATIV Ordered. EDMS 07/14 08:44 T-Sheet-- Draft Copy was scanned into [employer] and attached to record. gb Administered Medications: 07/12 21:03 CANCELLED (Other Intervention Used): Piperacillin-Tazobactam 3.375 grams IVPB once over mo1 30 mins; dilute in 50mL of NS or D5W 21:55 Drug: NS 0.9% 1000 ml [sodium chloride 0.9 % intravenous solution] Route: IV; Rate: 250 kas2 mL/hr; Site: right antecubital; 21:55 Drug: Ceftaroline Fosamil 600 mg [ceftaroline fosamil 600 mg intravenous solution] [facility] Route: IV; Rate: bolus; Infused Over: 30 mins; Site: right antecubital; 22:06 Drug: morphine 4 mg [morphine 4 mg/mL intravenous cartridge (1 mL)] Route: IVP; Site: kas2 right antecubital; 23:03 Follow up: BP 142 / 60; Pulse 65 bpm; Resp 18 bpm; Temp 98.0; Pulse Ox 99% RA; Pain [facility] 08/18 Adult; Response: No Adverse Reaction; Pain is decreased 22:06 Drug: Ondansetron 4 mg [ondansetron HCl 2 mg/mL intravenous solution (2 mL)] Route: kas2 IVP; Site: right antecubital; Signatures: Dispatcher [employer] EDMS Janel Hernandez RN RN daq Barnhardt, Gloria, Karie Hu Joel jpb O'Hagan, Michael, PA PA mo1 Matilde Moreau RN RN ead Anderson, Kodie, LPN LPN ka4 Smith, Kim, RN RN kas2 The chart was reviewed and I authenticate all verbal orders and agree with the evaluation and treatment provided.Corrections: (The following items were deleted from the chart) 21:03 20:47 Piperacillin-Tazobactam 3.375 grams IVPB once over 30 mins; dilute in 50mL of NS mo1 or D5W ordered. mo1 07/13 00:08 07/12 22:11 C REACTIVE PROTEIN QUANTITATIV ordered. EDMS EDMS Attachments: 21:00 [facility] Payment Agreement jpb 07/14 08:44 T-Sheet-- Draft Copy gb Chart Complete MTDD
--- NOTE | 2016-07-15 01:39 | EDDOCDS ---
Nurse's Notes [facility] Name: Roxi Christopher Age: 81 yrs Sex: Female : 1935 Arrival Date: 07/12/2016 Time: 19:03 Bed I4 / M4 Private MD: Karie Adorno Diagnosis: Cellulitis of left upper limb;Contusion of left hand Presentation: 07/12 19:08 Presenting complaint: Patient states: pt reports falling on [address]ne, injuring ead left hand. Was seen by primary care today and instructed to come here. Pt has swelling, bruising, and and black wound approx 1 inch in diameter to top of left hand. markings around swelling done by primary. Adult Sepsis Screening: The patient does not have new or worsening altered mentation. Patient's respiratory rate is less than 22. Systolic blood pressure is greater than 100. Patient has a qSOFA score of 0- Negative Sepsis Screen. Suicide/Homicide risk assessment- the patient denies having any suicidal and/or homicidal ideations and does not present with any other emotional, behavioral or mental health complaints. Status: Patient is not a technical services analyst or dependent. Transition of care: patient was not received from another setting of care. 19:08 Acuity: MICHAEL Level 3 ead 19:08 Method Of Arrival: Walkin/Carried/Asstd ead Triage Assessment: 19:14 General: Appears in no apparent distress, Behavior is appropriate for age, cooperative. ead Pain: Location: left hand and left arm Pain currently is 7 out of 10 on a pain scale. Neurological: No deficits noted. Respiratory: Airway is patent Respiratory effort is even, unlabored. Derm: bruising from left hand up left arm. swelling to left hand. closed wound to top of left hand. Musculoskeletal: Swelling present in left hand. Historical: - Allergies: no known allergies; - Home Meds: 1. allopurinol 100 mg Oral tab once daily 2. atenolol 50 mg Oral tab 1 tab once daily 3. furosemide 40 mg Oral tab once daily 4. Sertraline 25 mg daily 5. Melrose-3 oral cap 2 capsules twice a day 6. Lipitor 10 mg Oral tab once daily 7. Ranexa 500 mg oral Tb12 2 times per day 8. Xarelto 20 mg oral tab once daily 9. Lantus 50-52 units at night Sub-Q 10. Humalog sliding scale subcutaneous soln before each meal 11. colchicine 0.6 mg Oral tab - PMHx: Diabetes - IDDM: controlled; Gout; CHF; Hypertension; "leaky valve"; - PSHx: Knee Arthroplasty, Right; eye implants; - Social history: Smoking status: Patient states former smoker of tobacco. No barriers to communication noted, The patient speaks fluent Romanian, Speaks appropriately for age. - Family history: Not pertinent. - : The pt / caregiver states he / she is on anticoagulants: Xarelto Home medication list is obtained from the patient. - Exposure Risk Screening:: None identified. Screenin:28 Advance Directives: Currently, there is a health care proxy, Kathy Turk ttb Granddaughter/HCP & Daughter/HCP Monik Jones & Mele Candi ---able to receive information however not HCP (Son). 07/13 00:11 Screening information is obtained from the patient. Fall risk: No risks identified. ka4 Assistance ADL's: requires no assistance with activities of daily living. Abuse/DV Screen: The patient / caregiver reports he/she is: not in a situation that causes fear, pain or injury. Nutritional screening: No deficits noted. home support is adequate. Assessment: 07/12 20:14 General: pt updated. Awake and alert. NAD noted. Awaiting PA visit. Family at bedside . ttb 20:37 General: Appears in no apparent distress, comfortable, Behavior is appropriate for age, ka4 cooperative, pleasant. Respiratory: Airway is patent Respiratory effort is even, unlabored, Respiratory pattern is regular, symmetrical. Derm: patients left hand red and swollen. Warm to touch. Large black area on top of hand. Dark purple bruising throughout fingers, hand, and back of arm. 21:53 General: Appears in no apparent distress, uncomfortable, well nourished, well groomed, kas2 Behavior is appropriate for age, cooperative. Pain: Location: left arm and left hand Pain currently is 6 out of 10 on a pain scale. Neurological: Level of Consciousness is awake, alert, Oriented to person, place, time. Cardiovascular: Heart tones present Rhythm is regular. Respiratory: Airway is patent Respiratory effort is even, unlabored, Respiratory pattern is regular, symmetrical, Breath sounds are clear bilaterally. Derm: Skin is intact, is healthy with good turgor, Skin is dry, Skin is pink, warm & dry. normal, Skin temperature is warm. 22:50 General: Patient resting in bed trying to sleep. Appears comfortable. No apparent kas2 distress noted. Call alanis within reach. Will continue to monitor.. 23:55 General: Appears in no apparent distress, uncomfortable, Behavior is appropriate for ka4 age, cooperative, pleasant. General:. Neurological: Level of Consciousness is awake, alert, obeys commands, Oriented to person, place, time. Respiratory: Airway is patent Respiratory effort is even, unlabored, Respiratory pattern is regular, symmetrical. Vital Signs: 19:05 BP 207 / 81; Pulse 63; Resp 16; Temp 99.2(O); Pulse Ox 98% ; Weight 113.85 kg (R); cmb Height 5 ft. 4 in. (162.56 cm) (R); Pain 7/10; 20:50 BP 158 / 78; Temp 97.4(O); ka4 23:03 BP 142 / 60; Pulse 65; Resp 18; Temp 98.0; Pulse Ox 99% on R/A; Pain 2/10; kas2 23:54 BP 138 / 68 LA Supine (man/lg); Pulse 70 MON; Resp 18 S; Temp 98.5(TE); Pulse Ox 98% on ka4 R/A; Pain 6/10; 19:05 Body Mass Index 43.08 (113.85 kg, 162.56 cm) [facility] Vitals: 19:05 Log In Time: July 12, 2016 at 19:03. b ED Course: 19:05 Patient visited by Rhiannon Rodney. cmb 19:05 Karie Adorno is Private Physician. cmb 19:05 Patient moved to Waiting cmb 19:07 Patient moved to Pre RCE cmb 19:09 Triage Initiated ead 19:44 Patient moved to Triage 2 jmb 20:11 Mo Moore PA is PHCP. mo1 20:11 Rip Moore DO is Attending Physician. mo1 20:14 Patient visited by Paty Sullivan RN. ttb 20:14 Patient visited by Paty Sullivan RN. ttb 20:23 Patient moved to I4 / M4 jmb 20:30 Patient visited by Paty Sullivan RN. ttb 20:32 Patient visited by Mo Moore PA. mo1 20:43 Patient visited by Mone Rogers LPN. ka4 21:00 [facility] Payment Agreement was scanned into Deed and attached to record. jpb 21:13 CBC with Diff Sent. kas2 21:13 BMP Sent. kas2 21:13 -Blood Culture Sent. kas2 21:13 CRP Sent. kas2 21:13 ESR Sent. kas2 21:13 Wound Culture & GS - Most Extremities Sent. kas2 21:14 Patient visited by Rosa Isela Weinberg RN. kas2 21:14 Inserted saline lock: 20 gauge in right antecubital area and blood collected. The kas2 patient tolerated the procedure well. No procedures done that require assistance. 21:19 Cheryl Sosa is Hospitalizing Provider. mo1 21:39 BLOOD CULTURES Sent. ka4 21:55 Patient visited by Rosa Isela Weinberg RN. kas2 23:05 Patient visited by Rosa Isela Weinberg RN. kas2 23:48 Patient visited by Rosa Isela Weinberg RN. kas2 23:54 Patient visited by Rosa Isela Weinberg RN. kas2 23:55 Patient visited by Mone Rogers LPN. ka4 23:56 Patient visited by Mone Rogers LPN. ka4 01 00:11 The patient / caregiver is instructed regarding the plan of care and ED course. Patient ka4 has correct armband on for positive identification. Bed in low position. Call light in reach. Side rails up X 1. 00:11 IV is patent, is intact, is free of redness or swelling. Flushed right antecubital ka4 saline lock w/ 2 ml NS. 07/14 08:44 T-Sheet-- Draft Copy was scanned into Deed and attached to record. gb Administered Medications: 07/12 21:03 CANCELLED (Other Intervention Used): Piperacillin-Tazobactam 3.375 grams IVPB once over mo1 30 mins; dilute in 50mL of NS or D5W 21:55 Drug: NS 0.9% 1000 ml [sodium chloride 0.9 % intravenous solution] Route: IV; Rate: 250 kas2 mL/hr; Site: right antecubital; 21:55 Drug: Ceftaroline Fosamil 600 mg [ceftaroline fosamil 600 mg intravenous solution] [facility] Route: IV; Rate: bolus; Infused Over: 30 mins; Site: right antecubital; 22:06 Drug: morphine 4 mg [morphine 4 mg/mL intravenous cartridge (1 mL)] Route: IVP; Site: [facility] right antecubital; 23:03 Follow up: BP 142 / 60; Pulse 65 bpm; Resp 18 bpm; Temp 98.0; Pulse Ox 99% RA; Pain [facility] 08/18 Adult; Response: No Adverse Reaction; Pain is decreased 22:06 Drug: Ondansetron 4 mg [ondansetron HCl 2 mg/mL intravenous solution (2 mL)] Route: kas2 IVP; Site: right antecubital; Order Results: Lab Order: CBC with Diff; SPEC'M 07/12/16 21:16 Test: WHITE BLOOD COUNT; Value: 9.7; Range: 4.0-10.0; Units: K/mm3; Status: F Test: RED BLOOD COUNT; Value: 3.49; Range: 4.00-5.40; Abnormal: Below low normal; Units: M/mm3; Status: F Test: HEMOGLOBIN; Value: 11.4; Range: 12.0-16.0; Abnormal: Below low normal; Units: g/dl; Status: F Test: HEMATOCRIT; Value: 34.8; Range: 36.0-47.0; Abnormal: Below low normal; Units: %; Status: F Test: MEAN CORPUSCULAR VOLUME; Value: 99.8; Range: 80.0-96.0; Abnormal: Above high normal; Units: fl; Status: F Test: MEAN CORPUSCULAR HEMOGLOBIN; Value: 32.6; Range: 27.0-33.0; Units: pg; Status: F Test: MEAN CORPUSCULAR HGB CONC; Value: 32.6; Range: 32.0-36.5; Units: g/dl; Status: F Test: RED CELL DISTRIBUTION WIDTH; Value: 13.6; Range: 11.5-14.5; Units: %; Status: F Test: PLATELET COUNT, AUTOMATED; Value: 267; Range: 150-450; Units: k/mm3; Status: F Test: NEUTROPHILS %; Value: 57.3; Range: 36.0-66.0; Units: %; Status: F Test: LYMPH %; Value: 32.8; Range: 24.0-44.0; Units: %; Status: F Test: MONO %; Value: 3.7; Range: 0.0-5.0; Units: %; Status: F Test: EOS %; Value: 3.7; Range: 0.0-3.0; Abnormal: Above high normal; Units: %; Status: F Test: BASO %; Value: 0.5; Range: 0.0-1.0; Units: %; Status: F Test: LARGE UNSTAINED CELL %; Value: 1.9; Range: 0.0-4.0; Units: %; Status: F Test: NEUTROPHILS #; Value: 5.6; Range: 1.8-7.7; Units: K/mm3; Status: F Test: LYMPH #; Value: 3.2; Range: 1.5-4.5; Units: K/mm3; Status: F Test: MONO #; Value: 0.4; Range: 0.0-0.8; Units: K/mm3; Status: F Test: EOS #; Value: 0.4; Range: 0.0-0.50; Units: K/mm3; Status: F Test: BASO #; Value: 0.0; Range: 0.0-0.2; Units: K/mm3; Status: F Test: LARGE UNSTAINED CELL #; Value: 0.2; Range: 0.0-0.4; Units: K/mm3; Status: F Lab Order: [facility]; SPEC'M 07/12/16 21:16 Test: GLUCOSE, FASTING; Value: 126; Range: 83-110; Abnormal: Above high normal; Units: MG/DL; Status: F Test: BLOOD UREA NITROGEN; Value: 40; Range: 7-18; Abnormal: Above high normal; Units: MG/DL; Status: F Test: CREATININE FOR GFR; Value: 2.24; Range: 0.55-1.02; Abnormal: Above high normal; Units: MG/DL; Status: F Test: GLOMERULAR FILTRATION RATE; Value: 22.3; Range: >32; Abnormal: Below low normal; Status: F Test: SODIUM LEVEL; Value: 145; Range: 136-145; Units: MEQ/L; Status: F Test: POTASSIUM SERUM; Value: 3.8; Range: 3.5-5.1; Units: MEQ/L; Status: F Test: CHLORIDE LEVEL; Value: 108; Range: 98-107; Abnormal: Above high normal; Units: MEQ/L; Status: F Test: CARBON DIOXIDE LEVEL; Value: 26; Range: 21-32; Units: MEQ/L; Status: F Test: ANION GAP; Value: 11; Range: 8-16; Units: MEQ/L; Status: F Test: CALCIUM LEVEL; Value: 8.8; Range: 8.8-10.2; Units: MG/DL; Status: F Test Note: ; Units are mL/min/1.73 m2 Chronic Kidney Disease Staging per NKF: Stage I & II GFR >=60 Normal to Mildly Decreased Stage III GFR 30-59 Moderately Decreased Stage IV GFR 15-29 Severely Decreased Stage V GFR <15 Very Little GFR Left ESRD GFR <15 on WOOD TYPE FINISHER Lab Order: CRP; SPEC'M 07/12/16 21:16 Test: C REACTIVE PROTEIN QUANTITATIV; Value: 7.03; Range: 0.00-0.30; Abnormal: Above high normal; Units: MG/DL; Status: F Lab Order: ESR; SPEC'M 07/12/16 21:16 Test: ERYTHROCYTE SEDIMENTATION RATE; Value: 58; Range: 0-30; Abnormal: Above high normal; Units: mm/hr; Status: F Outcome: 21:19 Decision to Hospitalize by Provider. mo1 07/13 00:11 Discharge Assessment: Patient awake, alert and oriented x 3. No cognitive and/or ka4 functional deficits noted. Patient verbalized understanding of disposition instructions. patient administered narcotics - yes. Patient was admitted to the hospital or transferred to another facility. The following High Risk Discharge criteria are identified: None. Admitted to Med/Surg accompanied by tech, via stretcher. Condition: stable. Property :Personal belongings accompany Pt. 00:11 No special radiology studies were completed. ka4 00:37 Patient left the ED. kas2 Signatures: Carmina Hay, Braulio Brown [place] cmb Conner, Teresa, RN Mo Posadas PA PA mo1 Roger Hilton RN RN jmb Dunaway, Emily, RN RN ead Anderson, Kodie, LPN LPN ka4 Rosa Isela Weinberg RN RN kas2 Corrections: (The following items were deleted from the chart) 07/12 19:16 19:08 Presenting complaint: Patient states: pt reports falling on [address], ead injuring left hand. Was seen by primary care today and instructed to come here. Pt has swelling, bruising, and and black wound approx 1 inch in diameter to top of right hand. markings around swelling done by primary. ead Chart Complete MTDD
[2016-07-15] MEDS: ACETAMINOPHEN TAB 650MG DOSE (2X325MG) PO PRN (03:03)
[2016-07-15 06:34] LABS: BASO # 0.1 K/mm3 (0.0-0.2); BASO % 0.6 % (0.0-1.0); EOS # 0.2 K/mm3 (0.0-0.50); EOS % 1.9 % (0.0-3.0); LARGE UNSTAINED CELL # 0.2 K/mm3 (0.0-0.4); LARGE UNSTAINED CELL % 1.6 % (0.0-4.0); LYMPH # 2.3 K/mm3 (1.5-4.5); LYMPH % 20.6 % (24.0-44.0); MEAN CORPUSCULAR HGB CONC 32.1 g/dl (32.0-36.5); MEAN CORPUSCULAR VOLUME 99.8 fl (80.0-96.0); MONO # 0.5 K/mm3 (0.0-0.8); MONO % 5.1 % (0.0-5.0); NEUTROPHILS # 7.2 K/mm3 (1.8-7.7); NEUTROPHILS % 70.2 % (36.0-66.0); PLATELET COUNT, AUTOMATED 202 k/mm3 (150-450); RED CELL DISTRIBUTION WIDTH 14.2 % (11.5-14.5); WHITE BLOOD COUNT 10.2 K/mm3 (4.0-10.0)
[2016-07-15 06:54] LABS: ALBUMIN 2.1 GM/DL (3.2-5.2); ALBUMIN/GLOBULIN RATIO 0.6 (1.00-1.93); BILIRUBIN,TOTAL 0.4 MG/DL (0.2-1.0); CALCIUM LEVEL 8.4 MG/DL (8.8-10.2); CREATININE FOR GFR 2.25 MG/DL (0.55-1.02); GLOMERULAR FILTRATION RATE 22.2 (>32); POTASSIUM SERUM 3.9 MEQ/L (3.5-5.1); TOTAL PROTEIN 5.6 GM/DL (6.4-8.2)
[2016-07-15] MEDS ORDERED: CEFEPIME HCL 1 GM in D5W MINI-BAG PLUS 50 ML IV SCH (07:45)
[2016-07-15] MEDS: HumaLOG INSULIN (NovoLOG) PER UNIT SC SCH ×4 (07:53→21:00)
[2016-07-15] MEDS: SERTRALINE HCL 25 MG TABLET PO SCH (07:54)
[2016-07-15] MEDS: CALCITRIOL 0.25 MCG CAP (S0169) PO SCH (07:54)
[2016-07-15] MEDS: SENOKOT S TAB PO SCH ×2 (07:54→21:49)
[2016-07-15] MEDS: ATENOLOL 50 MG TAB PO SCH (07:54)
[2016-07-15] MEDS: RANOLAZINE 500 MG ER TAB PO SCH ×2 (07:54→22:13)
[2016-07-15] MEDS: OMEGA-3 1050MG CAPSULE PO SCH ×2 (07:55→21:49)
[2016-07-15] MEDS ORDERED: CEFEPIME HCL 0.5 GM in D5W 50 ML IV SCH (10:00)
[2016-07-15] MEDS ORDERED: VANCOMYCIN HCL 1,000 MG, VIAL MATE ADAPTER 1 EACH in D5W 250 ML IV ONE (11:00)
[2016-07-15] MEDS: CEFEPIME HCL 0.5 GM in D5W 50 ML IV SCH (12:06)
--- NOTE | 2016-07-15 14:19 | CR ---
DATE OF CONSULTATION: 07/15/2016 REQUESTING PHYSICIAN: Dr. Roxanne Ortiz CONSULTING PHYSICIAN: Dr. Bates REASON FOR CONSULTATION: Management of acute kidney injury superimposed on chronic kidney disease Stage III. CHIEF COMPLAINT: Patient admitted on 07/12/2016 with left hand swelling and cellulitis. HISTORY OF PRESENT ILLNESS: Ms. Roxi Christopher is an 81-year-old female with past medical history of chronic kidney disease Stage III. She follows up with Dr. Valadez who is a shredding specialist who comes to [place] and as reported by the patient she was told that she has Stage III chronic kidney disease. She is also type 2 diabetic and hypertensive. Her baseline creatinine according to our records from 2014 is between 1.7 to 2. She was admitted on 07/12/2016 for left hand pain and swelling after a fall and trauma to the hand. Her creatinine on admission was 2.2. Nephrology service was called for further management of possible acute kidney injury superimposed on chronic kidney disease Stage III. Of note, the patient was also taking Xarelto because of history of deep vein thrombosis (DVT) and Xarelto has been stopped at this time. PAST MEDICAL HISTORY: 1. Chronic kidney disease Stage III. 2. History of gout. 3. Hypertension. 4. Diabetes mellitus type 2. 5. Gastroesophageal reflux disease. 6. Hypercholesterolemia. PAST SURGICAL HISTORY: 1. Status post bilateral cataract surgery. 2. Status post right knee surgery. ALLERGIES: Patient is allergic to SULFA drugs. HOME MEDICATIONS: Patient's home medications include: - Tylenol - Allopurinol 100 mg daily - atenolol 50 mg daily - atorvastatin 10 mg at bedtime - calcitriol 0.25 mg daily - Colace 100 mg as needed - vitamin D 50,000 units once a week - Lasix 40 mg daily - Lantus 50 units subcutaneous at bedtime - insulin Lispro sliding scale. - milk of magnesia - [place] 3 fatty acids - MiraLAX as needed - Ranexa 500 mg twice a day - Xarelto 20 mg at bedtime - Sertraline 25 mg daily CURRENT INPATIENT MEDICATIONS (include): - Cefepime 0.5 grams IV every 24 hours - vancomycin 750 mg IV every 12 hours - atenolol - atorvastatin - Dulcolax as needed - calcitriol - Colace - Levemir - insulin sliding scale - milk of magnesia - morphine as needed - Zofran as needed - Percocet as needed - Ranexa 500 mg by mouth twice a day - Sertraline 25 mg by mouth daily FAMILY HISTORY: No significant family history of end stage renal disease requiring hemodialysis. There is positive history of prostate cancer in the father. SOCIAL HISTORY: Patient lives with her son. She denies any smoking or alcohol use. She denies any history of illicit drug abuse. REVIEW OF SYSTEMS: CONSTITUTIONAL: The patient denies any fever or chills, weakness, night sweats. EYES: She denies any history of blurry vision or change in the vision. ENT: She denies any ear discharge, dysphagia, odynophagia or sore throat. CARDIOVASCULAR: She denies any chest pain, palpitations or shortness of breath. RESPIRATORY: She denies any chest pain or shortness of breath or wheezing. GASTROINTESTINAL (GI): She denies any constipation, diarrhea, pain in abdomen. GENITOURINARY: She denies any dysuria or hematuria. MUSCULOSKELETAL: She denies any muscle aches and pains, but she does report left arm swelling. CENTRAL NERVOUS SYSTEM (FASHION DESIGNER): She denies any history of CVAs, transient ischemic attacks, or seizures. PSYCHIATRIC: She denies any history of anxiety or depression. SKIN: She reports bruising on the left hand. All other review of systems is negative. PHYSICAL EXAM: GENERAL: Patient is awake, alert, oriented times three, sitting in the bed in no apparent distress. VITAL SIGNS: Temperature 97.7 degrees Fahrenheit. Blood pressure 150/62. Pulse 58. Respiratory rate 18. Saturating 94% on room air. INTAKE AND OUTPUT: Urine output recorded as 725 mL so far today. Weight on the bed scale is 114.2 kg. HEAD AND NECK: Extraocular muscles intact. Pupils equally round and reactive to light. Neck is supple. There is no jugular venous distention. Mucous membranes are moist. CARDIOVASCULAR: S1, S2. Regular rate. No murmur, rub or gallop. RESPIRATORY: Chest is clear to auscultation bilaterally. Bilateral equal air entry. No rales or rhonchi. ABDOMEN: Soft. Positive bowel sounds. No ascites. No organomegaly. EXTREMITIES: No clubbing or cyanosis. Pulses are 2+. No edema of the bilateral lower extremities. Patient has a large ecchymosis on the left hand and it is covered in a dressing. CENTRAL NERVOUS SYSTEM (FASHION DESIGNER): No focal neurological deficit. Power is 5/5 in all extremities. PSYCHIATRIC: Normal mood and affect. SKIN: No rashes or ulcers. LAB REVIEW: CBC showed a WBC of 10.2, hemoglobin 9, and platelets 202. BMP showed sodium 138, potassium 3.9, chloride 107, bicarbonate 22, BUN 34, creatinine 2.25, GFR around 22, calcium 8.4, albumin 2.1. MICROBIOLOGY: Gram stain of the wound culture showed moderate growth of Staphylococcus aureus. IMAGING: Doppler of the left arm showed no evidence of deep vein thrombosis (DVT). ASSESSMENT: 81-year-old female with past medical history of chronic kidney disease Stage III, diabetes, hypertension, history of deep vein thrombosis on Xarelto, admitted at this time because of left hand swelling. Nephrology service is called for management of acute kidney injury superimposed on chronic kidney disease. PLAN: 1. Acute kidney injury superimposed on chronic kidney disease. Patient's baseline creatinine according to our records is anywhere between 1.7-2. She currently looks like she is close to her baseline creatinine; however, there is no urinalysis available and I do not even have an ultrasound. I have ordered the ultrasound and urinalysis. She was also on Xarelto which can also affect the kidney function sometimes by causing hematuria. Xarelto is already on hold. I do not see any other nephrotoxic medications at this time. The patient's creatinine is almost stable, close to baseline, since the time she was admitted three days ago. Continue to monitor 24 hours intake and output and daily weight. Avoid NSAIDS for pain medications at this time. Avoid IV contrast studies at this time as well. 2. History of deep vein thrombosis (DVT). Avoid Xarelto at this time. If patient needs anticoagulation she can be switched to Eliquis or Coumadin. 3. Left hand hematoma and cellulitis. Management is as per primary team. The patient is being given IV Cefepime and vancomycin at this time. 4. Hypertension. Blood pressure is acceptable at this time. Continue current dose of atenolol 50 mg by mouth daily. 5. Secondary hyperparathyroidism and chronic kidney disease. Continue current dose of calcitriol 0.25 mg by mouth daily. 6. Diabetes mellitus type 2. Continue current dose of Levemir and insulin sliding scale. Avoid metformin in this patient. 7. History of diastolic congestive heart failure. Patient's volume status is optimized at this time. Her blood pressure is acceptable. If her renal function stays stable by tomorrow, then she can be restarted on her home dose of Lasix 40 mg by mouth daily. Thank you for involving us in the care of this patient. We shall be happy to follow the patient along with you tomorrow morning. MTDD
[2016-07-15 14:50] LABS: ABG HCO3 21.8 MEQ/L (22.0-26.0); ABG PARTIAL PRESSURE CO2 33.8 mmHg (35.0-45.0); ABG PARTIAL PRESSURE O2 95.6 mmHg (75.0-100.0); ABG STANDARD HCO3 22.8 MEQ/L (22.0-26.0); ABG TOTAL CO2 22.9 MEQ/L (23.0-31.0); ABG pH (ARTERIAL) 7.428 UNITS (7.350-7.450)
[2016-07-15] MEDS: HEPARIN SOD (PORCINE) 5000 UNITS/ML VIAL SQ SCH ×2 (14:57→21:49)
[2016-07-15] MEDS ORDERED: methylPREDNISolone INJ 125 MG/2 ML VIAL (J2930) IV SCH (15:00)
[2016-07-15] MEDS ORDERED: FUROSEMIDE 40 MG/4 ML VIAL (J1940) IV ONE (15:00)
--- NOTE | 2016-07-15 16:57 | REP ---
Urinary tract sonography: History: Acute kidney injury on chronic kidney disease. Findings: Scanning at the level of the urinary bladder shows no abnormality. Renal cortical echogenicity pattern is somewhat increased consistent with chronic medical renal disease. The kidneys are somewhat atrophic particularly the right. Right kidney measures 8.8 x 4.2 x 4.4 cm. Left renal dimensions of 10.3 x 5.0 x 5.7 cm. No hydronephrosis is seen on either side. No mass lesion is observed. There is evidence of vascular calcification. Exam quality is inhibited by patient body habitus and bowel gas. Impression: Somewhat atrophic right kidney. Increased renal cortical echogenicity consistent with medical renal disease. No hydronephrosis seen. Signed by Tolu Gilmore MD 07/15/2016 05:34 P
--- NOTE | 2016-07-15 17:09 | REP ---
Portable chest x-ray: Single view. History: Shortness of breath. Comparison chest x-ray December 18, 2014. Findings: There is a diffuse interstitial edema pattern. Pulmonary vasculature is somewhat congested. Heart is near the upper limits of normal in size. No pleural effusion is seen. Perihilar density is a little more prominent on the right than the left. Impression: Pulmonary vascular congestion and interstitial edema pattern, right a little more prominent than left. Question cardiogenic. Borderline heart size. No pleural effusion. Signed by Tolu Gilmore MD 07/15/2016 05:35 P
--- NOTE | 2016-07-15 17:28 | IPN ---
DATE: 07/15/2016 Patient seen and examined. No acute events overnight. Patient was febrile. Denies any chest pain, pressure or discomfort. Denies any nausea or vomiting. This afternoon, when patient was going down for renal ultrasound, patient was lying flat on the bed, had an episode of dyspnea with hypoxia, subsequently returned and symptoms on the floor improved slightly. Xray was taken. Her cardiac enzymes were sent. Xray shows pulmonary vascular congestion and patient also has lower extremity edema, subsequently Lasix was given. Oxygen supplementation was also given. Cardiac enzymes were obtained with mild troponin leak but no CK-MB index. Patient was transferred to progressive care unit (PCU) for closer monitoring. VITAL SIGNS: Temperature 99.2, pulse 71, respirations 30, blood pressure 171/65, pulse oximetry 96% on 3 liters nasal cannula. LABORATORY DATA: WBC 10.2, hemoglobin and hematocrit 9/27.9, platelets 202. Chemistry: Sodium 138, potassium 3.9, chloride 107, bicarbonate 22, BUN 34, creatinine 2.25, troponin 0.77, CK-MB and CK negative, BNP 370. PHYSICAL EXAMINATION: GENERAL: Patient comfortable, in no acute distress. Alert and oriented times three. HEENT: Normocephalic, atraumatic. Pupils equal, round and reactive. NECK: Supple. CARDIAC: 2/6 systolic murmur, as per patient, is old. Regular rate and rhythm, normal S1, S2. PULMONARY: Bilateral rhonchi. ABDOMEN: Soft, nontender, nondistended. EXTREMITIES: Left upper extremity dressing clean, dry, and intact with some dry blood, swelling seems to be improved. Ulnar and radial pulses intact. Sensation intact. ASSESSMENT AND PLAN: This is an 81-year-old female patient with underlying medical history of dyslipidemia, gastroesophageal reflux disease (GERD), insulin-dependent diabetes, chronic kidney disease stage III, hypertension, history of rheumatic fever, gout, was sent by primary care provider to the hospital for progressively worsening left dorsal hand swelling and warmth and also recent injury to the left hand. PROBLEMS: 1. Left hand dorsal injury and swelling. Possible cellulitis with possible underlying hematoma. Orthopedics consulted. Status post operating room (OR) for evacuation. Case was discussed with Dr. Dwayne Simmons, likely hematoma. Culture and pathology has been sent. If eschar does not improve, as per Dr. Simmons, patient will need plastic surgery, referral as outpatient, otherwise the patient should be scheduled to followup with Dr. Simmons in 5-7 days in the office. Followup C-reactive protein, erythrocyte sedimentation rate (ESR). Antibiotics as ordered, advance to cefepime and vancomycin given fevers and worsening condition. Hold anticoagulation given hematoma. 2. Acute congestive heart failure. Unknown ejection fraction. Echocardiogram ordered. Given diuresis with Lasix. Xrays appreciated. Cardiac enzymes. Telemetry monitoring. Likely secondary to fluid overload. Strict intake and output, daily weights. 3. Acute on chronic renal failure, baseline chronic kidney disease (CKD) stage III. Intravenous (IV) fluids were initially given. Followup BUN and creatinine. Renally dose medications. Consulted nephrology. 4. Gout. Outpatient followup. Withholding allopurinol given elevated creatinine function, restart as needed. 5. Hypertension. Continue blood pressure medication and monitor. 6. Remote history of deep venous thrombosis (DVT), as per patient, in 2014, was on Xarelto for anticoagulation, with left hand injury and subsequent swelling likely due to hematoma. Ultrasound Doppler is negative for deep venous thrombosis (DVT). Xarelto has been on hold with outpatient followup to consider restarting anticoagulation if need to. 7. Insulin-dependent diabetes. Dosage has been adjusted. Followup fingersticks. Basal bolus insulin. 8. Dyslipidemia. Continue statin. 9. History of rheumatic fever. Outpatient followup. 10. Gastroesophageal reflux disease (GERD). Continue home medication. 11. Depression and anxiety. Continue home medication. 12. Acute on chronic diastolic congestive heart failure with hypoxemia. Oxygen supplementation. Continue Ranexa and atenolol. Lasix has been given. Strict intake and output, daily weight. Xray is appreciated. 13. Constipation. Bowel regimen as prescribed. 14. Deep venous thrombosis (DVT) prophylaxis. Heparin subcutaneous has been restarted given history of deep venous thrombosis (DVT). DISPOSITION: Pending cultures, clinical improvement. Patient transferred to progressive care unit (PCU) for congestive heart failure (CHF).
--- NOTE | 2016-07-15 18:31 | PHACANCOPD ---
PHARMACY VANCOMYCIN DOSING Pt Demographics Demographics Patient Age:81 , Weight:114.200 , Gender: female Adjusted Body Weight Date: 07/15/16, Adjusted Body Weight: Kg Events Past 24 Hours Events Past 24 Hours: NO: Change in CrCl, Dialysis, Diuretic Therapy, Elevation in WBC, Fever, Other, Pending Diagnostics, Pending Procedures Vancomycin Vancomycin indication: cellulitis Vancomycin Target Ranges: 15-20 mcg/ml Vancomycin Load Y/N: Yes Load Dose Date Time Vancomycin Load Dose: 1000mg Date: 07/15 Time: 11am Vancomycin Dose Date: 07/15/16. Current Vancomycin Dose: [750mg IV q12h @21] Intermittent Dosing?: No Labs Labs Item Value Date Time Creatinine 1.95 MG/DL H 07/13/16 0721 Creatinine 2.16 MG/DL H 07/14/16 0704 Creatinine 2.25 MG/DL H 07/15/16 0600 White Blood Count 10.2 K/mm3 H 07/15/16 0600 White Blood Count 8.8 K/mm3 07/14/16 0704 White Blood Count 9.5 K/mm3 07/13/16 0627 C-Reactive Protein, Quantitative 7.41 MG/DL H 07/14/16 0704 C-Reactive Protein, Quantitative 13.20 MG/DL H 07/15/16 0600 C-Reactive Protein, Quantitative 5.94 MG/DL H 07/13/16 0721 Vital Signs Label Value Date Time Patient Temperature 99.1 degrees F 07/15/16 0400 Temperature Source Tympanic 07/15/16 0400 Patient Temperature 97.2 degrees F 07/15/16 0600 Temperature Source Tympanic 07/15/16 0600 Patient Temperature 97.7 degrees F 07/15/16 1000 Temperature Source Tympanic 07/15/16 1000 Patient Temperature 99.0 degrees F 07/15/16 1400 Temperature Source Tympanic 07/15/16 1400 Patient Temperature 99.2 degrees F 07/15/16 1430 Temperature Source Tympanic 07/15/16 1430 Micro Microbiology 07/12/16 Blood Culture - Preliminary, Resulted No Growth after 48 hours. All Specime... 07/12/16 Blood Culture - Preliminary, Resulted No Growth after 48 hours. All Specime... 07/12/16 MRSA Screen - Final, Complete 07/14/16 Gram Stain - Final, Resulted 07/14/16 Wound Culture, Resulted Pending 07/14/16 Anaerobic Culture, Resulted Pending 07/12/16 Gram Stain - Final, Complete 07/12/16 Wound Culture - Final, Complete Staphylococcus Aureus Creatinine Clearance Date:07/15/16. Creatinine Clearance: [28 ml/min using adjusted BW]. Assessment and Plan Maintaining Current Dose?: Yes Reason for dose change: No Dose Change Pharmacist Note Pharmacist Note Date: 07/15/16. Pharmacist note: pt was admitted on 07/12 for hand cellulitis vs hematoma and was started on ceftaroline. She had an I&D of her right hand on 07/14 but she has subsequently worsened in the last 24 hours and her antibiotics were changed to cefepime and vancomycin. Hand culture from 07/12 grew MSSA (MARCIA = 1), culture from I&D is currently pending. She has no vancomycin hx at our facility and does not have a Hx of MRSA. SCr has worsened since admission, baseline appears to be around 1.9 mg/dl. She received 1g of vancomycin this morning and I have started her on 750mg IV q12h to start tonight. I will continue to monitor and order a trough as needed. Satinder Weinberg Pharm.D. Jul 15, 2016 18:31
--- NOTE | 2016-07-15 21:19 | ECGEPIP ---
Stationary ECG Study [facility] Test Date: 2016-07-15 Pat Name: JOSÉ ANTONIO ANDERS Department: Room: [place] [address] Gender: F Emissions Testing Technician: MALA : 1935 Requested By: MARY GARZA Order Number: [id number] Reading MD: Leighton Del Angel Measurements Intervals [place] Rate: 69 P: 39 NE: 218 QRS: 13 QRSD: 97 T: 53 QT: 399 QTc: 430 Interpretive Statements SINUS RHYTHM WITH FIRST DEGREE AV BLOCK NONSPECIFIC ST & T-WAVE ABNORMALITY, CONSIDER ISCHEMIA NO CHANGE SINCE 07/13/16 Electronically Signed On 07-15-2016 21:18:53 EST by Leighton Del Angel
[2016-07-15] MEDS: ATORVASTATIN 10 MG TAB PO SCH (21:49)
[2016-07-15] MEDS: LEVEMIR (INSULIN DETEMIR) 1 UNITS/0.01ML SC SCH (21:50)
[2016-07-15] MEDS: VANCOMYCIN HCL 750 MG, VIAL MATE ADAPTER 1 EACH in D5W 250 ML IV SCH (21:50)
[2016-07-16 04:14] VITALS: BP 140/61
[2016-07-16] MEDS: HEPARIN SOD (PORCINE) 5000 UNITS/ML VIAL SQ SCH ×3 (05:19→22:23)
[2016-07-16 05:52] LABS: BASO % 0.5 % (0.0-1.0); EOS # 0.2 K/mm3 (0.0-0.50); EOS % 1.9 % (0.0-3.0); LARGE UNSTAINED CELL # 0.1 K/mm3 (0.0-0.4); LARGE UNSTAINED CELL % 1.6 % (0.0-4.0); LYMPH # 1.9 K/mm3 (1.5-4.5); LYMPH % 19.3 % (24.0-44.0); MEAN CORPUSCULAR HEMOGLOBIN 32.8 pg (27.0-33.0); MEAN CORPUSCULAR HGB CONC 33.3 g/dl (32.0-36.5); MEAN CORPUSCULAR VOLUME 98.5 fl (80.0-96.0); MONO # 0.4 K/mm3 (0.0-0.8); MONO % 4.7 % (0.0-5.0); NEUTROPHILS # 6.5 K/mm3 (1.8-7.7); PLATELET COUNT, AUTOMATED 181 k/mm3 (150-450); RED CELL DISTRIBUTION WIDTH 13.9 % (11.5-14.5)
[2016-07-16 06:04] LABS: ALBUMIN/GLOBULIN RATIO 0.65 (1.00-1.93); BILIRUBIN,TOTAL 0.5 MG/DL (0.2-1.0); CALCIUM LEVEL 7.9 MG/DL (8.8-10.2); CREATININE FOR GFR 2.32 MG/DL (0.55-1.02); GLOMERULAR FILTRATION RATE 21.4 (>32); POTASSIUM SERUM 3.8 MEQ/L (3.5-5.1); TOTAL PROTEIN 5.1 GM/DL (6.4-8.2)
[2016-07-16 08:00] VITALS: BP 205/87
[2016-07-16] MEDS: IPRATROPIUM 0.5MG/ALBUTEROL 2.5MG INH SOL UD 3ML (DUONEB)(J7620) NEB SCH ×3 (08:00→19:41)
[2016-07-16] MEDS ORDERED: FUROSEMIDE 40 MG/4 ML VIAL (J1940) IV ONE (08:30)
[2016-07-16] MEDS ORDERED: ALBUTEROL SULFATE 2.5 MG/0.5 ML INH NEB SOLN NEB PRN (08:30)
[2016-07-16] MEDS: SENOKOT S TAB PO SCH ×2 (08:43→22:23)
[2016-07-16] MEDS: CALCITRIOL 0.25 MCG CAP (S0169) PO SCH (08:43)
[2016-07-16] MEDS: HumaLOG INSULIN (NovoLOG) PER UNIT SC SCH ×4 (08:43→22:22)
[2016-07-16] MEDS: SERTRALINE HCL 25 MG TABLET PO SCH (08:43)
[2016-07-16] MEDS: RANOLAZINE 500 MG ER TAB PO SCH ×2 (08:43→22:22)
[2016-07-16] MEDS: VANCOMYCIN HCL 750 MG, VIAL MATE ADAPTER 1 EACH in D5W 250 ML IV SCH (08:43)
[2016-07-16] MEDS: OMEGA-3 1050MG CAPSULE PO SCH ×2 (08:43→22:23)
[2016-07-16] MEDS: ATENOLOL 50 MG TAB PO SCH (08:46)
[2016-07-16] MEDS ORDERED: FUROSEMIDE 40 MG/4 ML VIAL (J1940) IV SCH (09:00)
--- NOTE | 2016-07-16 11:24 | PHACANCOPD ---
PHARMACY VANCOMYCIN DOSING Pt Demographics Demographics Patient Age:81 , Weight:118.600 , Gender: female Adjusted Body Weight Date: 07/15/16, Adjusted Body Weight: Kg Events Past 24 Hours Events Past 24 Hours: NO: Change in CrCl, Dialysis, Diuretic Therapy, Elevation in WBC, Fever, Other, Pending Diagnostics, Pending Procedures Vancomycin Vancomycin indication: cellulitis Vancomycin Target Ranges: 15-20 mcg/ml Vancomycin Load Y/N: Yes Load Dose Date Time Vancomycin Load Dose: 1000mg Date: 07/15 Time: 11am Vancomycin Dose Date: 07/16/16. Current Vancomycin Dose: [1g IV Q24H @09] Date: 07/15/16. Current Vancomycin Dose: [750mg IV q12h @21] Intermittent Dosing?: No Labs Labs Item Value Date Time White Blood Count 9.5 K/mm3 07/13/16 0627 White Blood Count 8.8 K/mm3 07/14/16 0704 White Blood Count 10.2 K/mm3 H 07/15/16 0600 White Blood Count 9.0 K/mm3 07/16/16 0522 Creatinine 2.32 MG/DL H 07/16/16 0522 Creatinine 2.25 MG/DL H 07/15/16 0600 Creatinine 2.16 MG/DL H 07/14/16 0704 Vancomycin Level Trough 16.3 UG/ML 07/16/16 0522 Micro Microbiology 07/12/16 Blood Culture - Preliminary, Resulted No Growth after 72 hours. All specime... 07/12/16 Blood Culture - Preliminary, Resulted No Growth after 72 hours. All specime... 07/12/16 MRSA Screen - Final, Complete 07/14/16 Gram Stain - Final, Complete 07/14/16 Wound Culture - Final, Complete 07/14/16 Anaerobic Culture - Final, Complete 07/12/16 Gram Stain - Final, Complete 07/12/16 Wound Culture - Final, Complete Staphylococcus Aureus Creatinine Clearance Date:07/15/16. Creatinine Clearance: [28 ml/min using adjusted BW]. Assessment and Plan Maintaining Current Dose?: No Reason for dose change: Other Pharmacist Note Pharmacist Note Date: 07/16/16. Pharmacist note: vanco trough was drawn early (3.5 hours before third dose - ordered by Dr. Bates) and came back at 16.3. Pt received 750mg this morning @0900 and I have changed her dosing to 1g q24h to start tomorrow morning. SCr has not improved since yesterday, culture from I&D had no growth. We will continue to monitor. Date: 07/15/16. Pharmacist note: pt was admitted on 07/12 for hand cellulitis vs hematoma and was started on ceftaroline. She had an I&D of her right hand on 07/14 but she has subsequently worsened in the last 24 hours and her antibiotics were changed to cefepime and vancomycin. Hand culture from 07/12 grew MSSA (MARCIA = 1), culture from I&D is currently pending. She has no vancomycin hx at our facility and does not have a Hx of MRSA. SCr has worsened since admission, baseline appears to be around 1.9 mg/dl. She received 1g of vancomycin this morning and I have started her on 750mg IV q12h to start tonight. I will continue to monitor and order a trough as needed. Satinder Weinberg Pharm.D. Jul 16, 2016 11:24
[2016-07-16 12:00] VITALS: BP 142/77
[2016-07-16] MEDS: CEFEPIME HCL 0.5 GM in D5W 50 ML IV SCH (12:15)
--- NOTE | 2016-07-16 14:27 | ECHO ---
DATE: 07/16/2016 REFERRING PHYSICIAN: Dr. Ortiz INDICATION: Congestive heart failure and dyspnea. The patient measures 64 inches and weighs 251 pounds. DIMENSIONS: IVS 1.2 LV 4.5 LVPW 1.1 LA 4.2 Aorta 2.8 Ascending aorta 3.1 RV 2.5 LV systolic 2.6 FINDINGS: Study is of rather limited technical quality corresponding to patient's body habitus. Left ventricle is of normal size and probably normal systolic function. Subtle wall motion abnormalities cannot be ruled out. Right ventricle does not appear enlarged. Left atrium is at least moderately enlarged. Right atrium was poorly seen. Aortic valve was poorly visualized, it is sclerotic and there is definite restriction of leaflet mobility. It appears tricuspid though. There are also degenerative abnormalities of mitral valve with very prominent mitral annular calcifications. Tricuspid and pulmonic valves were poorly seen but grossly appear normal. No pericardial effusion is noted. Inferior vena cava is dilated but does collapse with respiration indicative of probably mildly elevated central venous pressure. Aortic root and aortic arch appear normal. Abdominal aorta was not visualized. Doppler interrogation of aortic valve reveals no insufficiency and [id number]-[id number] stenosis. Mean gradient across the valve is 22 mmHg and calculated aortic valve area 1.5 cm square. There is no significant mitral insufficiency and mild mitral stenosis with peak gradient 15 and mean gradient 4 mmHg. There is mild tricuspid insufficiency. Calculated pulmonary artery pressure is in high 50s low 60s corresponding to moderately severe pulmonary hypertension. Pulmonic valve exhibits trace insufficiency. Mitral inflow pattern and tissue Doppler imaging of mitral annulus reveal grade 2 diastolic dysfunction. CONCLUSIONS: 1. Study is of rather limited technical quality corresponding to patient's body habitus. 2. Normal LV size and grossly normal LV systolic function, grade 2 diastolic dysfunction. 3. Wjli-[id number]-[id number] aortic stenosis. 4. Mild mitral stenosis. 5. At least mildly elevated CVP. 6. Moderately severe pulmonary hypertension: COMMENT: SBE prophylaxis is not recommended.
[2016-07-16 16:00] VITALS: BP 140/64
[2016-07-16] MEDS: FUROSEMIDE 100 MG/10 ML VIAL (J1940) IV SCH (16:59)
[2016-07-16 22:16] VITALS: BP 137/62
[2016-07-16] MEDS: LEVEMIR (INSULIN DETEMIR) 1 UNITS/0.01ML SC SCH (22:22)
[2016-07-16] MEDS: ATORVASTATIN 10 MG TAB PO SCH (22:23)
[2016-07-17 01:01] VITALS: BP 142/65
[2016-07-17] MEDS: IPRATROPIUM 0.5MG/ALBUTEROL 2.5MG INH SOL UD 3ML (DUONEB)(J7620) NEB SCH ×4 (01:46→20:42)
[2016-07-17 05:08] VITALS: BP 144/64
[2016-07-17 05:42] LABS: BASO # 0.1 K/mm3 (0.0-0.2); BASO % 1.5 % (0.0-1.0); EOS # 0.2 K/mm3 (0.0-0.50); EOS % 2.8 % (0.0-3.0); LARGE UNSTAINED CELL # 0.2 K/mm3 (0.0-0.4); LARGE UNSTAINED CELL % 1.8 % (0.0-4.0); LYMPH # 1.7 K/mm3 (1.5-4.5); LYMPH % 16.7 % (24.0-44.0); MEAN CORPUSCULAR HEMOGLOBIN 32.5 pg (27.0-33.0); MEAN CORPUSCULAR HGB CONC 33.8 g/dl (32.0-36.5); MEAN CORPUSCULAR VOLUME 96.3 fl (80.0-96.0); MONO # 0.4 K/mm3 (0.0-0.8); MONO % 4.4 % (0.0-5.0); NEUTROPHILS # 6.6 K/mm3 (1.8-7.7); NEUTROPHILS % 72.8 % (36.0-66.0); PLATELET COUNT, AUTOMATED 198 k/mm3 (150-450); RED CELL DISTRIBUTION WIDTH 13.8 % (11.5-14.5); WHITE BLOOD COUNT 9.1 K/mm3 (4.0-10.0)
[2016-07-17 06:10] LABS: ALBUMIN 1.9 GM/DL (3.2-5.2); ALBUMIN/GLOBULIN RATIO 0.45 (1.00-1.93); BILIRUBIN,TOTAL 0.6 MG/DL (0.2-1.0); CALCIUM LEVEL 8.4 MG/DL (8.8-10.2); CREATININE FOR GFR 2.72 MG/DL (0.55-1.02); GLOMERULAR FILTRATION RATE 17.9 (>32); POTASSIUM SERUM 3.7 MEQ/L (3.5-5.1); TOTAL PROTEIN 6.1 GM/DL (6.4-8.2)
[2016-07-17] MEDS: HEPARIN SOD (PORCINE) 5000 UNITS/ML VIAL SQ SCH ×3 (07:02→21:10)
[2016-07-17 07:20] VITALS: BP 146/65
[2016-07-17] MEDS: HumaLOG INSULIN (NovoLOG) PER UNIT SC SCH ×4 (08:33→21:09)
[2016-07-17] MEDS: FUROSEMIDE 100 MG/10 ML VIAL (J1940) IV SCH ×2 (08:33→17:23)
[2016-07-17] MEDS: SENOKOT S TAB PO SCH ×2 (08:34→21:10)
[2016-07-17] MEDS: CALCITRIOL 0.25 MCG CAP (S0169) PO SCH (08:34)
[2016-07-17] MEDS: RANOLAZINE 500 MG ER TAB PO SCH ×2 (08:34→21:10)
[2016-07-17] MEDS: OMEGA-3 1050MG CAPSULE PO SCH ×2 (08:34→21:10)
[2016-07-17] MEDS: SERTRALINE HCL 25 MG TABLET PO SCH (08:34)
[2016-07-17] MEDS: ATENOLOL 50 MG TAB PO SCH (08:35)
[2016-07-17] MEDS ORDERED: VANCOMYCIN HCL 1,000 MG, VIAL MATE ADAPTER 1 EACH in D5W 250 ML IV SCH (09:00)
[2016-07-17] MEDS ORDERED: POTASSIUM CHLORIDE 10 MEQ SR TABLET PO ONE (09:30)
--- NOTE | 2016-07-17 10:18 | IPN ---
DATE: 07/16/2016 SUBJECTIVE: Patient had sudden onset of severe shortness of breath with wheezing this morning when he got out of bed to go to the bathroom with severe hypoxia with oxygenation dropping to 70s requiring oxygenation by nonrebreather mask, which gradually settled down after Lasix and nebulizer treatment. Denied any chest pain. Denies any cough. Denied any abdominal pain. Denies any fever or chills, nausea or vomiting. PHYSICAL EXAMINATION: VITAL SIGNS: Blood pressure 142/77, pulse 60, respiratory rate 20, pulse oximetry 94% with 3 liters nasal cannula. Temperature 97.9. GENERAL: Patient awake, alert and oriented times three, sitting up in bed in mild distress. HEENT: Normocephalic, atraumatic. Moist mucous membranes. Anicteric eyes. CHEST: Bilateral wheezing and crackles present. CARDIOVASCULAR: S1 and S2 regular. ABDOMEN: Soft, nontender. Bowel sounds present. EXTREMITIES: No edema. LABORATORY DATA: WBC 9, hemoglobin 8.7, platelets 181, sodium 139, potassium 3.8, chloride 106, bicarb 23, BUN 33, creatinine 2.3. Glucose 134. Liver function tests normal. Troponin is 0.65, CRP 21.7. ASSESSMENT/PLAN: This is an 81-year-old female with history of diabetes, chronic kidney disease stage 3-4, hypertension, dyslipidemia, gout, history of rheumatic fever, diastolic congestive heart failure (CHF), pulmonary hypertension, aortic stenosis, admitted for left hand cellulitis after a recent injury. PLAN: For left hand cellulitis with underlying hematoma, patient was taken to the operating room and is status post evacuation of hematoma by Dr. Simmons. Pathology has been sent from the OR. Had an eschar, which if it does not improve may need plastic surgery. Currently on vancomycin and cefepime for the cellulitis. Acute on chronic diastolic congestive heart failure (CHF) with normal ejection fraction. Will increase Lasix to 80 mg twice a day. Chest x-ray yesterday showed pulmonary vascular congestion as well as there has been increasing weight. The patient has been put on a 1.5 liter fluid restriction. Acute on chronic kidney disease, stage 3. Baseline creatinine around 1.6 to 1.8. Now a little worse with a creatinine of 2.3. Could be a combination due to infection and congestive heart failure. Will continue with diuresis to see if that improves. All medications are adjusted according to GFR. Patient is not in any NSAIDs and not on any TATO inhibitor or ARBs. Hypertension. Chronic. Will continue with current medications. Gout. Allopurinol is on hold because of worsening renal function. Diabetes. Will continue with insulin. Dyslipidemia. Will continue with statin. History of rheumatic fever. Has mitral stenosis on echocardiogram and moderate to severe aortic stenosis. Outpatient followup. Gastroesophageal reflux disease (GERD). Will continue with home medications. Anxiety/depression. Will continue with home medication. Acute hypoxic respiratory failure due to CHF exacerbation. Will continue with Lasix, fluid restriction and daily weights and oxygen supplementation. Deep vein thrombosis (DVT) prophylaxis has been ordered. The patient used to be on Xarelto, which is on hold. History of DVT in the past. Used to be Xarelto, however because of recent hematoma, it is on hold.
[2016-07-17 12:00] VITALS: BP 144/64
--- NOTE | 2016-07-17 12:03 | IPNPDOC ---
Assessment/Plan Date Seen The patient was seen on 07/17/16. Problems Problems: (1) Acute diastolic heart failure Status: Acute Problem Text: will continue with lasix iv bid, fluid restriction 1.5 liters. (2) Cellulitis of left hand Status: Acute Problem Text: s/p incision and drainage by Dr Simmons on cefepime and vancomycin wound culture MSSA will dc vancomycin. (3) Acute kidney injury superimposed on CKD Status: Acute Problem Text: baseline creatinine around 1.8 now up to 2.7 possibly due to chf exacerbation will adjust all medications as per gfr. (4) Diabetes mellitus Status: Chronic (5) Acute respiratory failure with hypoxia Status: Acute Problem Text: due to chf exacerbation (6) History of DVT (deep vein thrombosis) Status: Resolved Problem Text: on xarelto (7) GERD (gastroesophageal reflux disease) Status: Chronic (8) Hyperlipemia Status: Chronic (9) Hypertension Status: Chronic (10) Gout Status: Chronic Plan / VTE VTE Prophylaxis Ordered?: Yes Plan / Urinary Catheter Reason for insertion/continuin: Critical Pt monitoring Subjective Review of Systems CC/HPI The patient is a 81-year-old female admitted with a reason for visit of Cellulitis Of Left Hand. Events since last encounter feeling better today , SOb improved though still requiring oxygen . no cough or phlegm no chest pain , no abdominal pain or nausea or vomiting. Objective Physical Examination General Exam: Positive: Alert, No Acute Distress Eye Exam: Positive: Conjunctiva & lids normal, EOMI, PERRLA, Negative: Sclera icteric ENT Exam: Positive: Atraumatic, Mucous membr. moist/pink, Pharynx Normal Neck Exam: Positive: Supple, Negative: JVD, thyromegaly Chest Exam: Positive: Rales Heart Exam: Positive: Normal S1, Normal S2, Rate Normal, Regular Rhythm, Negative: Murmurs, Rubs Abdomen Exam: Positive: Normal bowel sounds, Soft, Negative: Hepatospenomegaly, Tenderness Extremity Exam: Positive: Normal pulses, Negative: Clubbing, Cyanosis, Edema Vital Signs/I&O Vital Signs Date Time Temp Pulse Resp B/P Pulse Ox O2 Delivery O2 Flow Rate FiO2 07/17/16 08:35 67 146/65 07/17/16 08:00 Nasal Cannula 3.0 07/17/16 07:20 98.0 22 95 07/16/16 10:00 50 I&O- Last 24 Hours up to 6 AM 07/17/16 05:59 Intake Total 1945 ml Output Total 3250 ml Balance -1305 ml Laboratory Data Labs 24H Laboratory Tests 2 07/16/16 16:12: Bedside Glucose (Misc Panel) 184H 07/16/16 20:48: Bedside Glucose (Misc Panel) 251H 07/17/16 05:22: Blood Urea Nitrogen 38H, Creatinine 2.72H, Sodium Level 137, Potassium Level 3.7 , Chloride Level 103, Carbon Dioxide Level 24, Calcium Level 8.4L, Aspartate Amino Transf (AST/SGOT) 17, Alanine Aminotransferase (ALT/SGPT) 17, Alkaline Phosphatase 42L, Total Bilirubin 0.6, Total Protein 6.1L, Albumin 1.9L, Albumin/ Globulin Ratio 0.45L, Anion Gap 10, White Blood Count 9.1, Red Blood Count 2.65L , Hemoglobin 8.6L, Hematocrit 25.5L, Mean Corpuscular Volume 96.3H, Mean Corpuscular Hemoglobin 32.5, Mean Corpuscular Hemoglobin Concent 33.8, Red Cell Distribution Width 13.8, Platelet Count 198, Neutrophils (%) (Auto) 72.8H, Lymphocytes (%) (Auto) 16.7L, Monocytes (%) (Auto) 4.4, Eosinophils (%) (Auto) 2.8, Basophils (%) (Auto) 1.5H, Neutrophils # (Auto) 6.6, Lymphocytes # (Auto) 1.7, Monocytes # (Auto) 0.4, Eosinophils # (Auto) 0.2, Basophils # (Auto) 0.1, C -Reactive Protein, Quantitative 26.00H, Glomerular Filtration Rate 17.9L, Large Unclassified Cells # 0.2, Large Unclassified Cells % 1.8 CBC/BMP Laboratory Tests 07/17/16 05:22 Calcium Level 8.4 L, Aspartate Amino Transf (AST/SGOT) 17, Alanine Aminotransferase (ALT/SGPT) 17, Alkaline Phosphatase 42 L, Total Bilirubin 0.6, Total Protein 6.1 L, Albumin 1.9 L, Red Blood Count 2.65 L, Mean Corpuscular Volume 96.3 H, Mean Corpuscular Hemoglobin 32.5, Mean Corpuscular Hemoglobin Concent 33.8, Red Cell Distribution Width 13.8, Neutrophils (%) (Auto) 72.8 H, Lymphocytes (%) (Auto) 16.7 L, Monocytes (%) (Auto) 4.4, Eosinophils (%) (Auto) 2.8, Basophils (%) (Auto) 1.5 H, Neutrophils # (Auto) 6.6, Lymphocytes # (Auto) 1.7, Monocytes # (Auto) 0.4, Eosinophils # (Auto) 0.2, Basophils # (Auto) 0.1 FSBS Laboratory Tests Test 07/16/16 16:12 07/16/16 20:48 Range/Units Bedside Glucose (Misc Panel) 184 251 83-110 MG/DL Microbiology Microbiology 07/12/16 Blood Culture - Preliminary, Resulted No Growth after 72 hours. All specime... 07/12/16 Blood Culture - Preliminary, Resulted No Growth after 72 hours. All specime... 07/12/16 MRSA Screen - Final, Complete 07/14/16 Gram Stain - Final, Complete 07/14/16 Wound Culture - Final, Complete 07/14/16 Anaerobic Culture - Final, Complete 07/12/16 Gram Stain - Final, Complete 07/12/16 Wound Culture - Final, Complete Staphylococcus Aureus DM BULLARD MD Jul 17, 2016 12:03
[2016-07-17] MEDS: CEFEPIME HCL 0.5 GM in D5W 50 ML IV SCH (12:14)
--- NOTE | 2016-07-17 12:52 | IPN ---
DATE: 07/16/2016 SUBJECTIVE: THe patient was seen and examined today in the morning at the bedside. Last 24 hour events were noted. The patient was in fluid overload and pulmonary edema. She required intravenous Lasix injections for her pulmonary edema. Her shortness of breath is better now and her blood pressure is also coming down after diuresis. Her creatinine is slightly elevated as compared with yesterday. REVIEW OF SYSTEMS: The patient denies any fevers, chills, rigors, headache, nausea, vomiting, chest pain. She was short of breath, which is getting better after diuresis. She denies any pain in the abdomen, constipation, or diarrhea. She does report slight pain in the left hand where she had the hematoma; however, dressing has been changed at this time. The rest of the review of systems is negative. OBJECTIVE: VITAL SIGNS: Temperature is 99.3 degrees Fahrenheit. Blood pressure is 140/64. Pulse is 69. Respiratory rate of 18. Saturating 95% on nasal cannula at 3 liters. INTAKE AND OUTPUT: Urine output recorded as 1.7 liters yesterday, 2.5 liter so far today since overnight. Weight on the bed scale is 118.6 kg. GENERAL: The patient is awake, alert, oriented times three, sitting in the bed. No apparent distress. Wearing nasal cannula. HEAD AND NECK EXAM: Extraocular muscles intact. Pupils are equally round and reactive to light. Neck is supple. There is no jugular venous distention (JVD). Mucous membranes are moist. CARDIOVASCULAR: S1, S2. Regular rate. No murmur, rub or gallop. RESPIRATORY: The patient has mild inspiratory crackles at bilateral bases. ABDOMEN: Soft. Positive bowel sounds. No ascites. No organomegaly. EXTREMITIES: No clubbing or cyanosis. Pulses are 2+. Patient has a hematoma on the dorsum of the left hand, which is covered by a dressing at this time. CENTRAL NERVOUS SYSTEM ([employer] DIV[employer]): No focal neurological deficit. Power is 5/5 in all extremities. LAB REVIEW: CBC showed a WBC of 9, hemoglobin 8.7, platelets are 181. Urinalysis done yesterday showed 1+ glucose, negative nitrite, negative leukocyte esterase, negative protein. BMP this morning showed sodium 139, potassium 3.8, chloride 106, bicarbonate 23, BUN 33, creatinine 2.3, calcium 7.9. Troponin is trending down, it was 0.65. Albumin is 2. IMAGING: Chest x-ray done yesterday in the afternoon showed pulmonary vascular congestion and interstitial edema. Renal ultrasound showed somewhat atrophic right kidney, which measured 8.8 cm, increased renal cortical echogenicity consistent with medical renal disease, no hydronephrosis. CURRENT MEDICATIONS: The patient's medications were all reviewed by me. She continues to be on intravenous cefepime and I see that she has been started on Lasix 80 mg intravenously twice a day. There is no other change in the medications at this time. ASSESSMENT: 81-year-old female with past medical history of chronic kidney disease stage 3, as reported by patient, diabetes mellitus type 2, hypertension, history of deep vein thrombosis on Xarelto, initially admitted because of left hand swelling and hematoma. Nephrology service following the patient for management of acute kidney injury superimposed on chronic kidney disease. PLAN: 1. Acute kidney injury superimposed on chronic kidney disease. Patient's baseline creatinine according to our records about two years ago is around 1.7 to 2; however, her creatinine has been staying stable at 2.2 ever since she was admitted. There is a slight bump in her creatinine today; however, given the fluid overload and shortness of breath, I will continue to diurese her. 2. Diastolic congestive heart failure (CHF) and fluid overload. The patient was started on Lasix 80 mg twice a day because of pulmonary edema and hypertension. I agree with the current dose. Once the volume status is optimized, she will be converted to oral diuretics. 3. Left hand hematoma and cellulitis. Management is as per primary team. She currently is on IV Cefepime and vancomycin. 4. Hypertension. Her blood pressure was elevated because of pulmonary edema, but after diuresis, her blood pressure is acceptable at this time. Continue current dose of atenolol 50 mg by mouth twice a day. If needed, she can be started on amlodipine 5 mg by mouth daily as well. 5. Secondary hyperparathyroidism. Continue current dose of calcitriol 0.25 mg by mouth daily.
--- NOTE | 2016-07-17 14:56 | IPN ---
DATE: 07/17/2016 SUBJECTIVE: Ms. Christopher was seen this morning at bedside. She does report shortness of breath with exertion and is currently on 3 liters nasal cannula. She does not use supplemental oxygen at home previous to this admission. She did have an echocardiogram done, which shows grade 2 diastolic dysfunction and elevated central venous pressure (CVP). As far her hand, there continues to be some swelling and ecchymosis of the left hand with some necrotic lesions. She does admit to some wrist pain. No chest pain. Afebrile. No gastrointestinal (GI) symptoms. She reports that she is urinating well and appetite is good. OBJECTIVE: VITAL SIGNS: Temperature 98.6, pulse 55, respiratory rate 22, blood pressure 144/64, pulse oximetry 99% on 3 liters nasal cannula. Intake and output: She has a balance of negative 1705 mL in the previous 24 hours. Her current weight is 116.3 kg. GENERAL: The patient is alert and oriented. In no acute distress. HEENT: Normocephalic, atraumatic. Extraocular muscles intact. Moist mucosa. NECK: Supple. Jugular pulsations mildly elevated. CHEST: Symmetric with no use of accessory muscles. HEART: Positive S1, S2. Irregular rate and rhythm. Systolic ejection murmur heard best at upper sternal border. LUNGS: Fair air movement bilaterally. No rhonchi or wheezing appreciated. ABDOMEN: Obese. Nontender. Soft. Bowel sounds present. Has urinary catheter in place. EXTREMITIES: No lower extremity edema. She does continue to have some left hand swelling and ecchymosis with two lesions on the left hand with some mild erythema. NEUROLOGIC: No focal deficits. LABORATORY DATA: White blood count (WBC) 9.1, hemoglobin 8.6, hematocrit 25.5, platelet count 198. Sodium 137, potassium 3.7, chloride 103, CO2 24, anion gap 10, BUN 38, creatine 2.72. Glomerular filtration rate (GFR) 17.9, fasting glucose 172, calcium 8.4, total bilirubin 0.6, AST 17, ALT 17, alkaline phosphatase 42, C-reactive protein (CRP) 26.0. Total protein 6.1, albumin 1.9. MICROBIOLOGY: Wound culture is positive for Staphylococcus aureus. Blood cultures show no growth thus far. ASSESSMENT AND PLAN: Ms. Castillo is an 81-year-old female with a past medical history significant for chronic kidney disease, gout, hypertension, diabetes, high cholesterol and gastroesophageal reflux disease (GERD) and history of deep vein thrombosis (DVT) on Xarelto, who was admitted for left hand swelling and found to be in acute kidney failure superimposed on chronic kidney disease. 1. Acute on chronic kidney disease. The patient's baseline creatine is somewhere between 1.7 and 2.0. Her urinalysis was negative. Renal ultrasound showed somewhat atrophic right kidney with increased renocortical echogenicity consistent with medical renal disease, no hydronephrosis. The patient's creatine level has bumped up a little bit and will need to continue to monitor this closely. No adjustment is being made to her Lasix at this time. Continue to avoid nephrotoxic medications. 2. Shortness of breath, likely secondary to decompensated heart failure. The patient had an echocardiogram, which showed grade 2 diastolic dysfunction, mild to moderate aortic stenosis, mild mitral stenosis, mildly elevated central venous pressure (CVP) and moderately severe pulmonary hypertension. The patient's brain natriuretic peptide was elevated on admission. She does continue to have shortness of breath with exertion. Continue with Lasix 80 mg twice a day. Continue to monitor renal function while being diuresed. She has a net negative of 1705 mL in the previous 24 hours. Electrolytes are stable. 3. Left hand hematoma and cellulitis being managed by the primary team. She appears to be on cefepime. 4. Hypertension. Blood pressure is stable. Continue atenolol. Monitor blood pressure for adjustments and medications. 5. Secondary hyperparathyroidism. Continue calcitriol 0.25 mg daily. Thank you for allowing us to participate in the care of Ms. Christopher. My preceptor for this patient encounter was Dr.Khalid Leon. The preceptor was physically present in the building during the encounter and was fully available. As needed, all aspects of the patient interview, examination, medical decision making process, and medical care plan development were reviewed and approved by the preceptor. The preceptor is aware and concurs with the plan as stated in the body of this note and will attest to such by his/her cosignature. JAVI
[2016-07-17 16:00] VITALS: BP 129/57
[2016-07-17] MEDS: ACETAMINOPHEN TAB 650MG DOSE (2X325MG) PO PRN (17:30)
[2016-07-17 20:00] VITALS: BP 137/56
[2016-07-17] MEDS: LEVEMIR (INSULIN DETEMIR) 1 UNITS/0.01ML SC SCH (21:09)
[2016-07-17] MEDS: ATORVASTATIN 10 MG TAB PO SCH (21:10)
[2016-07-18] VITALS: BP 144/65
[2016-07-18] MEDS: IPRATROPIUM 0.5MG/ALBUTEROL 2.5MG INH SOL UD 3ML (DUONEB)(J7620) NEB SCH ×4 (02:00→20:35)
[2016-07-18 04:00] VITALS: BP 146/66
[2016-07-18] MEDS: HEPARIN SOD (PORCINE) 5000 UNITS/ML VIAL SQ SCH ×3 (05:34→21:21)
[2016-07-18 06:12] LABS: BASO % 0.4 % (0.0-1.0); EOS # 0.3 K/mm3 (0.0-0.50); EOS % 3.4 % (0.0-3.0); LARGE UNSTAINED CELL # 0.2 K/mm3 (0.0-0.4); LYMPH # 1.1 K/mm3 (1.5-4.5); LYMPH % 15.2 % (24.0-44.0); MEAN CORPUSCULAR HEMOGLOBIN 32.6 pg (27.0-33.0); MEAN CORPUSCULAR HGB CONC 33.4 g/dl (32.0-36.5); MEAN CORPUSCULAR VOLUME 97.6 fl (80.0-96.0); MONO # 0.3 K/mm3 (0.0-0.8); MONO % 4.5 % (0.0-5.0); NEUTROPHILS # 5.6 K/mm3 (1.8-7.7); NEUTROPHILS % 74.5 % (36.0-66.0); PLATELET COUNT, AUTOMATED 222 k/mm3 (150-450); RED CELL DISTRIBUTION WIDTH 12.7 % (11.5-14.5); WHITE BLOOD COUNT 7.5 K/mm3 (4.0-10.0)
[2016-07-18 06:32] LABS: ALBUMIN 1.9 GM/DL (3.2-5.2); ALBUMIN/GLOBULIN RATIO 0.45 (1.00-1.93); BILIRUBIN,TOTAL 0.4 MG/DL (0.2-1.0); CALCIUM LEVEL 8.8 MG/DL (8.8-10.2); CREATININE FOR GFR 2.62 MG/DL (0.55-1.02); GLOMERULAR FILTRATION RATE 18.6 (>32); POTASSIUM SERUM 3.7 MEQ/L (3.5-5.1); TOTAL PROTEIN 6.1 GM/DL (6.4-8.2)
[2016-07-18 07:30] VITALS: BP 133/63
[2016-07-18] MEDS: HumaLOG INSULIN (NovoLOG) PER UNIT SC SCH ×4 (07:30→21:14)
--- NOTE | 2016-07-18 08:48 | IPNPDOC ---
Date of Service/Time Jul 12, 2016 at 19:03 Progress Note DATE OF ENCOUNTER: 07/18/16 SUBJECTIVE: Ms. Christopher was seen this morning at bedside. Patient reports that she does continue to have shortness of breath but that is improved. She is not currently on any oxygen, reports that she just took off her CPAP machine. Denies any chest pain. No nausea, vomiting, abdominal pain. No fevers or chills. As for her hand, left wrist pain is improved. Swelling is also improved. She reports that she is urinating well and appetite is good. CRP trending down. OBJECTIVE: VITAL SIGNS: Temperature 97.1, pulse 61, respiratory rate 18, blood pressure 146 /66, pulse ox 92% on room air. Intake 1280 mL, output 2375 mL, negative balance 1095 mL and previous 24 hours. Weight currently is 116.3 kg. GENERAL: The patient is alert and oriented. In no acute distress. HEENT: Normocephalic, atraumatic. Extraocular muscles intact. Moist mucosa. NECK: Supple. Jugular pulsations mildly elevated. CHEST: Symmetric with no use of accessory muscles. HEART: Positive S1, S2. Irregular rate and rhythm. Systolic ejection murmur heard best at right upper sternal border. LUNGS: Fair air movement bilaterally. No rhonchi or wheezing appreciated. ABDOMEN: Obese. Nontender. Soft. Bowel sounds present. Has urinary catheter in place. EXTREMITIES: No lower extremity edema. She does continue to have some mild left hand swelling and ecchymosis. NEUROLOGIC: No focal deficits. LABORATORY DATA: Calcium Level 8.8, Aspartate Amino Transf (AST/SGOT) 19, Alanine Aminotransferase (ALT/SGPT) 24, Alkaline Phosphatase 52, Total Bilirubin 0.4, Total Protein 6.1L, Albumin 1.9L, Albumin/Globulin Ratio 0.45L, Anion Gap 11, White Blood Count 7.5, Red Blood Count 2.77L, Hemoglobin 9.0L, Hematocrit 27.0L , Mean Corpuscular Volume 97.6H, Mean Corpuscular Hemoglobin 32.6, Mean Corpuscular Hemoglobin Concent 33.4, Red Cell Distribution Width 12.7, Platelet Count 222, Neutrophils (%) (Auto) 74.5H, Lymphocytes (%) (Auto) 15.2L, Monocytes (%) (Auto) 4.5, Eosinophils (%) (Auto) 3.4H, Basophils (%) (Auto) 0.4 , Neutrophils # (Auto) 5.6, Lymphocytes # (Auto) 1.1L, Monocytes # (Auto) 0.3, Eosinophils # (Auto) 0.3, Basophils # (Auto) 0.0, C-Reactive Protein, Quantitative 23.20H MICROBIOLOGY: Wound culture is positive for Staphylococcus aureus. Blood cultures show no growth thus far. ASSESSMENT AND PLAN: Ms. Castillo is an 81-year-old female with a past medical history significant for chronic kidney disease, gout, hypertension, diabetes, high cholesterol and gastroesophageal reflux disease (GERD) and history of deep vein thrombosis (DVT) on Xarelto, who was admitted for left hand swelling and found to be in acute kidney failure superimposed on chronic kidney disease. 1. Acute on chronic kidney disease. The patient's baseline creatine is somewhere between 1.7 and 2.0. Her urinalysis was negative. Renal ultrasound showed somewhat atrophic right kidney with increased renocortical echogenicity consistent with medical renal disease, no hydronephrosis. The patient's creatine has improved some from 2.72 down to 2.62. Lasix has been changed to 80 mg by mouth daily. Urinary catheter has been discontinued as patient states that she can't ambulate to the bathroom. Continue to avoid nephrotoxic medications. Continue fluid restriction. 2. Shortness of breath, likely secondary to decompensated heart failure. The patient had an echocardiogram, which showed grade 2 diastolic dysfunction, mild to moderate aortic stenosis, mild mitral stenosis, mildly elevated central venous pressure (CVP) and moderately severe pulmonary hypertension. The patient 's brain natriuretic peptide was elevated on admission. Continue to monitor renal function while being diuresed. 3. Left hand hematoma and cellulitis, improved. Being managed by the primary team. Patient is on cefepime. 4. Hypertension. Blood pressure is stable. Continue atenolol. Monitor blood pressure for adjustments and medications. 5. Secondary hyperparathyroidism. Continue calcitriol 0.25 mg daily. GME ATTESTATION GME ATTESTATION My preceptor for this patient encounter was physically present in the building during the encounter and was fully available. As needed, all aspects of the patient interview, examination, medical decision making process, and medical care plan development were reviewed and approved by the preceptor. Preceptor is aware and concurs with the plan as stated in the body of this note and will attest to such by his/her cosignature. KELLEN ESCUDERO DO Jul 18, 2016 08:48 07/17/16 20:31 1.0 07/16/16 10:00 50 I&O- Last 24 Hours up to 6 AM 07/18/16 06:00 Intake Total 1380 ml Output Total 2975 ml Balance -1595 ml Laboratory Tests 2 07/17/16 11:52: Bedside Glucose (Misc Panel) 313H 07/17/16 17:02: Bedside Glucose (Misc Panel) 196H 07/17/16 20:29: Bedside Glucose (Misc Panel) 231H 07/18/16 05:31: Blood Urea Nitrogen 49H, Creatinine 2.62H, Sodium Level 140, Potassium Level 3.7 , Chloride Level 105, Carbon Dioxide Level 24, Calcium Level 8.8, Aspartate Amino Transf (AST/SGOT) 19, Alanine Aminotransferase (ALT/SGPT) 24, Alkaline Phosphatase 52, Total Bilirubin 0.4, Total Protein 6.1L, Albumin 1.9L, Albumin/ Globulin Ratio 0.45L, Anion Gap 11, White Blood Count 7.5, Red Blood Count 2.77L , Hemoglobin 9.0L, Hematocrit 27.0L, Mean Corpuscular Volume 97.6H, Mean Corpuscular Hemoglobin 32.6, Mean Corpuscular Hemoglobin Concent 33.4, Red Cell Distribution Width 12.7, Platelet Count 222, Neutrophils (%) (Auto) 74.5H, Lymphocytes (%) (Auto) 15.2L, Monocytes (%) (Auto) 4.5, Eosinophils (%) (Auto) 3.4H, Basophils (%) (Auto) 0.4, Neutrophils # (Auto) 5.6, Lymphocytes # (Auto) 1.1L, Monocytes # (Auto) 0.3, Eosinophils # (Auto) 0.3, Basophils # (Auto) 0.0, C-Reactive Protein, Quantitative 23.20H, Glomerular Filtration Rate 18.6L, Large Unclassified Cells # 0.2, Large Unclassified Cells % 2.0 Laboratory Tests 07/18/16 05:31 Calcium Level 8.8, Aspartate Amino Transf (AST/SGOT) 19, Alanine Aminotransferase (ALT/SGPT) 24, Alkaline Phosphatase 52, Total Bilirubin 0.4, Total Protein 6.1 L, Albumin 1.9 L, Red Blood Count 2.77 L, Mean Corpuscular Volume 97.6 H, Mean Corpuscular Hemoglobin 32.6, Mean Corpuscular Hemoglobin Concent 33.4, Red Cell Distribution Width 12.7, Neutrophils (%) (Auto) 74.5 H, Lymphocytes (%) (Auto) 15.2 L, Monocytes (%) (Auto) 4.5, Eosinophils (%) (Auto) 3.4 H, Basophils (%) (Auto) 0.4, Neutrophils # (Auto) 5.6, Lymphocytes # (Auto) 1.1 L, Monocytes # (Auto) 0.3, Eosinophils # (Auto) 0.3, Basophils # (Auto) 0.0 Microbiology 07/12/16 Blood Culture - Final, Complete NO GROWTH AFTER 5 DAYS 07/12/16 Blood Culture - Final, Complete NO GROWTH AFTER 5 DAYS 07/12/16 MRSA Screen - Final, Complete 07/14/16 Gram Stain - Final, Complete 07/14/16 Wound Culture - Final, Complete 07/14/16 Anaerobic Culture - Final, Complete 07/12/16 Gram Stain - Final, Complete 07/12/16 Wound Culture - Final, Complete Staphylococcus Aureus GME ATTESTATION GME ATTESTATION My preceptor for this patient encounter was physically present in the building during the encounter and was fully available. As needed, all aspects of the patient interview, examination, medical decision making process, and medical care plan development were reviewed and approved by the preceptor. Preceptor is aware and concurs with the plan as stated in the body of this note and will attest to such by his/her cosignature. KELLEN ESCUDERO DO Jul 18, 2016 08:48
[2016-07-18] MEDS: FUROSEMIDE 100 MG/10 ML VIAL (J1940) IV SCH (09:21)
[2016-07-18] MEDS: SENOKOT S TAB PO SCH ×2 (09:22→21:21)
[2016-07-18] MEDS: CALCITRIOL 0.25 MCG CAP (S0169) PO SCH (09:22)
[2016-07-18] MEDS: OMEGA-3 1050MG CAPSULE PO SCH ×2 (09:22→21:21)
[2016-07-18] MEDS: ATENOLOL 50 MG TAB PO SCH (09:22)
[2016-07-18] MEDS: SERTRALINE HCL 25 MG TABLET PO SCH (09:22)
[2016-07-18] MEDS: POTASSIUM CHLORIDE 10 MEQ SR TABLET PO SCH (09:22)
[2016-07-18] MEDS: RANOLAZINE 500 MG ER TAB PO SCH ×2 (09:22→21:20)
[2016-07-18] MEDS ORDERED: FLEET OIL RETENTION ENEMA PR PRN (11:15)
--- NOTE | 2016-07-18 11:50 | IPN ---
DATE: 07/18/2016 SUBJECTIVE: The patient tells me that she is feeling better today. She is breathing more easily. She denies chest pain, shortness of breath, fevers, chills, nausea, vomiting, diarrhea. OBJECTIVE: VITAL SIGNS: Temperature 97.1, pulse 61, respiratory rate 18, blood pressure 146/66, oxygen saturation 92% on room air. GENERAL: She is a very pleasant, elderly, obese, female sitting up in bed. She does not appear to be in any acute distress. HEENT: Cranial nerves II through XII are grossly intact. No significant elevation in central venous pressure this morning. CARDIOVASCULAR EXAM: S1, S2. Regular. RESPIRATORY EXAM: Fairly clear. Diminished breath sounds at the bases. ABDOMINAL EXAM: Grossly obese. EXTREMITIES: There is 1+ edema bilaterally. LABORATORY STUDIES: Today, WBC 7.5, hemoglobin 9.0, hematocrit 27, platelet count is 222. Chemistry panel: Sodium 140, potassium 3.7, chloride 105, bicarbonate 24, BUN 49, creatinine 2.6, relatively stable from yesterday. C-reactive protein trending down. Microbiology: Wound culture from the left hand from 07/12/2016 was positive fro Staphylococcus aureus, otherwise all further cultures have been negative. ASSESSMENT AND PLAN: This is an 81-year-old female with decompensated heart failure and left hand abscess. 1. Left hand abscess, status post incision and drainage by Dr. Simmons on 07/14/2016. The patient had previously been on cefepime and vancomycin; however, at this time, I will transition her to doxycycline 100 mg by mouth twice a day for 6 additional days to complete a 10 day course from the day of incision and drainage. Appears to be healing quite well at this time. 2. Acute diastolic heart failure. Nephrology help is greatly appreciated. The patient is continued on intravenous diuresis with improvement in her symptoms. Yesterday, she required 2 liters of oxygen and today she is comfortable on room air. I will transfer her to the medical/surgical floor with the plan for potential discharge in the next 24 to 48 hours on discussing further with nephrology. 3. Acute kidney injury superimposed on chronic. Nephrology's help is greatly appreciated. Possibly secondary to congestive heart failure (CHF) exacerbation. We are avoiding nephrotoxic medications. She does appear to be improving slightly with diuresis. We will continue to monitor daily. The patient is on Calcitriol. 4. Type 2 diabetes. She is on sliding scale insulin. Her fingersticks are controlled. 5. Hypertension. She is on atenolol. Blood pressure is fairly well controlled. 6. Coronary artery disease. The patient is on beta ankit, statin, and Ranexa. She has no symptoms at this time. 7. Constipation. The patient is on a fairly aggressive bowel regimen. I will add an enema as needed, given that she is having some mild constipation. 8. Deep vein thrombosis (DVT). The patient is currently on DVT prophylaxis with heparin. She was previously on Xarelto, which is planned to be restarted upon discharge. It was held secondary to her procedure. 9. Dyslipidemia. The patient is on a statin. 10. Anemia. Appears to be quite stable, likely related to her renal disease. We will defer to her outpatient providers. DISPOSITION: The patient is transferred to the medical/surgical floor. I spoke with nursing staff to encourage ambulation. I suspect that she may be able to be discharged within the next 24 to 48 hours if cleared by nephrology and she passes a voiding trial with removal of the Anna catheter tomorrow.
[2016-07-18] MEDS: DOXYCYCLINE HYCLATE 100 MG TAB PO SCH ×2 (14:10→21:21)
[2016-07-18 14:45] VITALS: BP 159/71
--- NOTE | 2016-07-18 19:47 | RO ---
DATE OF PROCEDURE: 07/14/2016 PREOPERATIVE DIAGNOSIS: Left upper extremity infected hematoma. POSTOPERATIVE DIAGNOSIS: Left upper extremity infected hematoma. Is seen. PROCEDURE PERFORMED: Irrigation and debridement of hematoma left upper extremity. SURGEON: Dr. Simmons PROP CUTTER: Mo Mccall, ANTONIA ANESTHSIA: Local [facility] Dr. Nieves. COMPLICATIONS: None. INDICATIONS: This 81-year-old female who is on Xarelto anticoagulant hit her hand against an object and developed a lot of swelling which subsequently became painful and erythematous. She has elected for operative intervention / incision and drainage (I and D). Consent reviewed in detail with the patient including a wm discussion of the pathology involved, the procedure proposed, alternatives including doing nothing and risks including not limited to pain, failure, need for skin graft and other issues. She wants to proceed. OPERATIVE COURSE: Identified in the holding area. Site and side verified brought to the operating room. Once the patient was sedated she was positioned for exposure of the left upper extremity. No tourniquet was inflated. I outlined the incision with a marking pen in line with the fourth ray. The patient had an eschar which was approximately 3 cm x 3 cm that was towards the second ray. This area was avoided and I left a large skin bridge. The incision was infiltrated with 0.25% Marcaine with epinephrine and made with a #10-blade knife developed down through skin subcuticular tissues. Next, I encountered hematoma and there was a large hematoma and this was evacuated. I cultured the hematoma for aerobic and anaerobic organisms. Next, the hematoma did not seem to be loculated or it was minimally loculated. I was able evacuate most of the hematoma. The dermal tissue under the eschar seemed to be quite thin. I was careful to preserve the eschar as a biologic dressing. Next, irrigation was accomplished using saline solution. Once this was accomplished I inspected the wounds and reapproximated the skin incision which was 2.5 fingerbreadths long using nylon stitch. Dressing was applied and the patient was moved to recovery in good condition. Mr. Mccall was present and participated in the entirety of the case.
[2016-07-18] MEDS: ATORVASTATIN 10 MG TAB PO SCH (21:21)
[2016-07-18] MEDS: LEVEMIR (INSULIN DETEMIR) 1 UNITS/0.01ML SC SCH (21:22)
[2016-07-18 22:00] VITALS: BP 154/63
[2016-07-19] MEDS: IPRATROPIUM 0.5MG/ALBUTEROL 2.5MG INH SOL UD 3ML (DUONEB)(J7620) NEB SCH ×2 (01:47→07:28)
[2016-07-19] MEDS: HEPARIN SOD (PORCINE) 5000 UNITS/ML VIAL SQ SCH (05:48)
[2016-07-19 06:00] VITALS: BP 138/65
[2016-07-19 07:03] LABS: BASO % 0.4 % (0.0-1.0); EOS # 0.3 K/mm3 (0.0-0.50); EOS % 4.3 % (0.0-3.0); LARGE UNSTAINED CELL # 0.1 K/mm3 (0.0-0.4); LARGE UNSTAINED CELL % 2.1 % (0.0-4.0); LYMPH # 1.5 K/mm3 (1.5-4.5); LYMPH % 24.5 % (24.0-44.0); MEAN CORPUSCULAR HEMOGLOBIN 32.5 pg (27.0-33.0); MEAN CORPUSCULAR VOLUME 95.6 fl (80.0-96.0); MONO # 0.3 K/mm3 (0.0-0.8); MONO % 5.5 % (0.0-5.0); NEUTROPHILS # 3.8 K/mm3 (1.8-7.7); NEUTROPHILS % 63.3 % (36.0-66.0); PLATELET COUNT, AUTOMATED 262 k/mm3 (150-450); RED CELL DISTRIBUTION WIDTH 12.9 % (11.5-14.5)
[2016-07-19 07:15] LABS: ALBUMIN 2.1 GM/DL (3.2-5.2); ALBUMIN/GLOBULIN RATIO 0.47 (1.00-1.93); BILIRUBIN,TOTAL 0.4 MG/DL (0.2-1.0); CALCIUM LEVEL 8.8 MG/DL (8.8-10.2); CREATININE FOR GFR 2.4 MG/DL (0.55-1.02); GLOMERULAR FILTRATION RATE 20.6 (>32); POTASSIUM SERUM 3.7 MEQ/L (3.5-5.1); TOTAL PROTEIN 6.6 GM/DL (6.4-8.2)
[2016-07-19] MEDS: HumaLOG INSULIN (NovoLOG) PER UNIT SC SCH ×2 (07:30→12:23)
[2016-07-19] MEDS: OMEGA-3 1050MG CAPSULE PO SCH (08:46)
[2016-07-19] MEDS: DOXYCYCLINE HYCLATE 100 MG TAB PO SCH (08:46)
[2016-07-19] MEDS: RANOLAZINE 500 MG ER TAB PO SCH (08:46)
[2016-07-19] MEDS: CALCITRIOL 0.25 MCG CAP (S0169) PO SCH (08:46)
[2016-07-19 08:47] VITALS: BP 138/65
[2016-07-19] MEDS: SENOKOT S TAB PO SCH (08:47)
[2016-07-19] MEDS: SERTRALINE HCL 25 MG TABLET PO SCH (08:47)
[2016-07-19] MEDS: POTASSIUM CHLORIDE 10 MEQ SR TABLET PO SCH (08:47)
[2016-07-19] MEDS: ATENOLOL 50 MG TAB PO SCH (08:47)
[2016-07-19] MEDS ORDERED: FUROSEMIDE 80 MG TAB PO SCH (09:00)
--- NOTE | 2016-07-19 09:13 | IPNPDOC ---
Date of Service/Time Jul 12, 2016 at 19:03 Progress Note DATE OF ENCOUNTER: 07/19/16 SUBJECTIVE: Ms. Christopher was seen this morning at bedside. Patient reports that her shortness of breath has significantly improved. She is not currently on any oxygen. Denies any chest pain. No nausea, vomiting, abdominal pain. No fevers or chills. As for her hand, left wrist pain is improved, just some minor soreness. Motion of left wrist is at baseline. Swelling is also improved. She reports that she is urinating well and appetite is good. CRP trending down. OBJECTIVE: Vital Signs Date Time Temp Pulse Resp B/P Pulse Ox O2 Delivery O2 Flow Rate FiO2 07/19/16 08:47 62 138/65 07/19/16 06:00 98.0 20 93 07/18/16 19:40 Room Air I&O- Last 24 Hours up to 6 AM 07/19/16 05:59 Intake Total 700 ml Output Total 2000 ml Balance -1300 ml GENERAL: The patient is alert and oriented. In no acute distress. HEENT: Normocephalic, atraumatic. Extraocular muscles intact. Moist mucosa. NECK: Supple. Jugular pulsations not significantly elevated. CHEST: Symmetric with no use of accessory muscles. HEART: Positive S1, S2. Irregular rate and rhythm. Systolic ejection murmur heard best at right upper sternal border. LUNGS: Good air movement bilaterally. No rales, rhonchi or wheezing appreciated. ABDOMEN: Obese. Nontender. Soft. Bowel sounds present. EXTREMITIES: No lower extremity edema. She does continue to have some mild left hand with scab and vertical stitched incision. NEUROLOGIC: No focal deficits. LABORATORY DATA: Calcium Level 8.8, Aspartate Amino Transf (AST/SGOT) 23, Alanine Aminotransferase (ALT/SGPT) 30, Alkaline Phosphatase 56, Total Bilirubin 0.4, Total Protein 6.6, Albumin 2.1L, Albumin/Globulin Ratio 0.47L, Anion Gap 7L, White Blood Count 6.0, Red Blood Count 2.71L, Hemoglobin 8.8L, Hematocrit 25.9L , Mean Corpuscular Volume 95.6, Mean Corpuscular Hemoglobin 32.5, Mean Corpuscular Hemoglobin Concent 34.0, Red Cell Distribution Width 12.9, Platelet Count 262, Red Blood Count 2.71 L, Mean Corpuscular Volume 95.6, Mean Corpuscular Hemoglobin 32.5, Mean Corpuscular Hemoglobin Concent 34.0, Red Cell Distribution Width 12.9 ASSESSMENT AND PLAN: Ms. Castillo is an 81-year-old female with a past medical history significant for chronic kidney disease, gout, hypertension, diabetes, high cholesterol and gastroesophageal reflux disease (GERD) and history of deep vein thrombosis (DVT) on Xarelto, who was admitted for left hand swelling and found to be in acute kidney failure superimposed on chronic kidney disease. 1. Acute on chronic kidney disease. Her urinalysis was negative. Renal ultrasound showed somewhat atrophic right kidney with increased renocortical echogenicity consistent with medical renal disease, no hydronephrosis. The patient's creatine has improved some from 2.62 to 2.4. Continue Lasix 80 mg by mouth daily. Continue to avoid nephrotoxic medications. Continue fluid restriction. 2. Shortness of breath, secondary to decompensated heart failure. The patient had an echocardiogram, which showed grade 2 diastolic dysfunction, mild to moderate aortic stenosis, mild mitral stenosis, mildly elevated central venous pressure (CVP) and moderately severe pulmonary hypertension. She is back on her daily dosing of Lasix now that volume status is better compensated. Continue to monitor renal function. 3. Left hand hematoma and cellulitis, improved. Being managed by the primary team. Patient is now on doxycycline. 4. Hypertension. Blood pressure is stable on atenolol. 5. Secondary hyperparathyroidism. Continue calcitriol 0.25 mg daily. DISPOSITION: Renal function improved. She would be stable for discharge to follow up with her commission broker. GME ATTESTATION GME ATTESTATION My preceptor for this patient encounter was physically present in the building during the encounter and was fully available. As needed, all aspects of the patient interview, examination, medical decision making process, and medical care plan development were reviewed and approved by the preceptor. Preceptor is aware and concurs with the plan as stated in the body of this note and will attest to such by his/her cosignature. KELLEN ESCUDERO DO Jul 19, 2016 09:13
[2016-07-19] MEDS ORDERED: POTA10CA PO (10:30)
[2016-07-19] MEDS ORDERED: DOXY10CA PO (10:30)
[2016-07-19] MEDS ORDERED: FURO1TAB15 PO (10:30)
--- NOTE | 2016-07-19 17:17 | DSES ---
DATE OF ADMISSION: 07/12/2016 DATE OF DISCHARGE: 07/19/2016 DISCHARGE DIAGNOSIS: Acute diastolic heart failure. SECONDARY DIAGNOSES: 1. Left hand abscess status post incision and drainage. 2. Acute kidney injury. 3. Type 2 diabetes. 4. Hypertension. 5. Coronary artery disease. 6. Constipation. 7. Dyslipidemia. 8. Anemia. HOSPITAL COURSE: The patient is an 81-year-old female who was admitted for left hand swelling, sent by her primary care provider. The patient was seen in consultation by orthopedic surgery. She was started on broad-spectrum antibiotics. On 07/14/2016, the patient did undergo incision and drainage by Dr. Simmons. The patient tolerated the procedure well. Hospital course was complicated by fluid overload and acute kidney injury requiring diuresis. The patient was seen in consultation by Dr. Leon of nephrology. Her clinical status did improve with diuresis and her renal function did improve. SUBJECTIVE: Today, the patient reports that she is feeling well. She has no complaints. She wants to go home. She denies chest pain, shortness of breath, fevers, chills, or any pain in the left hand. OBJECTIVE: VITAL SIGNS: Temperature 98, pulse 62, respiratory rate 20, blood pressure 138/65, oxygen saturation 93% on room air. GENERAL: She is a very pleasant, elderly, female accompanied by her adult son. The patient is in no acute distress. NEUROLOGIC: Cranial nerves II-XII are grossly intact. HEENT: She has moist mucous membranes. CARDIOVASCULAR: S1, S2 regular. RESPIRATORY: Fairly clear, some mild rales at the bases. ABDOMEN: Grossly obese. EXTREMITIES: There is no appreciable edema. Her left hand is under a dry sterile dressing. There is eschar at the top with several stitches. It is dry and healing well without any areas of erythema, tenderness or swelling. LABORATORY STUDIES: Today, WBC 6.0, hemoglobin 8.8, hematocrit 25.9, and platelet count 262. Chemistry panel: Sodium 141, potassium 3.6, chloride 105, bicarbonate 29, BUN 48, creatinine 2.4, creatinine was it its highest at 2.7. CRP continues to trend down, it is 17 today and peak was 26. She had a UA which was essentially unremarkable. Wound cultures from the hand grew Staphylococcus aureus MSSA, otherwise blood cultures have been negative. ASSESSMENT AND PLAN: This is an 81-year-old female with decompensated heart failure and left hand abscess. 1. Left hand abscess status post incision and drainage by Dr. Simmons on 07/14/2016. She had previously been on broad-spectrum antibiotics. At this time, I will transition her to doxycycline 100 mg by mouth twice a day to complete a 10-day course from the time of the incision and drainage. It appears healing quite well. She will have to followup with Dr. Simmons regarding suture removal and wound assessment. 2. Acute diastolic heart failure. Nephrology's help has been greatly appreciated. Her intravenous diuresis has been switched to Lasix by mouth twice a day. She no longer has an oxygen requirement. She is quite comfortable. Her Anna catheter has been removed and she has passed a voiding trial. She will followup with nephrology's office on the outpatient setting. 3. Acute kidney injury, superimposed on chronic. As outlined above, the patient has improved. 4. Type 2 diabetes. The patient is on sliding scale insulin. Her fingersticks are well controlled. 5. Hypertension. She is on atenolol. Blood pressures have been well controlled. 6. Dyslipidemia. The patient is on a statin. 7. Anemia. The patient appears to be quite stable. Likely related to her renal disease. We will defer to her outpatient providers. 8. Coronary artery disease. The patient is on a beta ankit, statin, and Ranexa. She has had no symptoms during her hospital stay. 9. Deep vein thrombosis (DVT) prophylaxis. The patient was on heparin. She will be restarted on her Xarelto upon discharge. DISPOSITION: The patient is being discharged home to the care of her family. She has been cleared by physical therapy. She is to followup with her primary care provider (PCP) within seven days, Dr. Simmons within two weeks, and Dr. Leon's office within two weeks. Her activity is as tolerated. Her diet is a two-gram sodium, 1500 mL fluid restricted. She is to have a dry sterile dressing over her wound. She has been advised to return to emergency room (ER) should her symptoms worsen. MEDICATIONS AT THE TIME OF DISCHARGE: - doxycycline 100 mg by mouth twice a day for five days - Lasix 80 mg daily - potassium chloride 20 mEq daily - Tylenol 1 gram every six hours as needed for pain - allopurinol 100 mg daily - atenolol 50 mg daily - atorvastatin 10 mg at bedtime - calcitriol 0.25 mcg daily - Colace 100 mg twice a day as needed for constipation - vitamin D 50,000 units once a week on Sundays - Lantus 50 units at bedtime - Lispro before meals sliding scale - milk of magnesia 30 mL daily as needed for constipation - omega-3 polyunsaturated fatty acids 2 grams twice a day as per the patient - MiraLAX one packet daily as needed for constipation - Ranexa 500 mg twice a day - Xarelto 20 mg daily at bedtime - sertraline 25 mg daily Greater than 30 minutes was spent organizing disposition.
== END 2016-07-19 13:05 | disposition home health service (06) | DRG 602 ==
LOC: M ED 19:03 → M ED INP 23:35 → M MSPAV 07-13 00:38 → M PCU 07-15 19:55 → M MSPAV 07-18 14:40
PROVIDERS: ADMIT Internal Medicine; ATTEND Hospitalist
PROC: 0JCJ0ZZ Extirpation of Matter from Right Hand Subcutaneous Tissue and Fascia, Open Approach (ICD-10-PCS; principal; 2016-07-14 13:45)
DX: L03.114 Cellulitis of left upper limb (principal); I50.33 Acute on chronic diastolic (congestive) heart failure; J96.01 Acute respiratory failure with hypoxia; I13.0 Hypertensive heart and chronic kidney disease with heart failure and stage 1 through stage 4 chronic kidney disease, or unspecified chronic kidney disease; N17.9 Acute kidney failure, unspecified; N25.81 Secondary hyperparathyroidism of renal origin; L02.512 Cutaneous abscess of left hand; K21.9 Gastro-esophageal reflux disease without esophagitis; E11.9 Type 2 diabetes mellitus without complications; N18.3 Chronic kidney disease, stage 3 (moderate); M10.9 Gout, unspecified; E66.9 Obesity, unspecified; D63.1 Anemia in chronic kidney disease; F41.9 Anxiety disorder, unspecified; F32.9 Major depressive disorder, single episode, unspecified; M79.81 Nontraumatic hematoma of soft tissue; B95.61 Methicillin susceptible Staphylococcus aureus infection as the cause of diseases classified elsewhere; K59.00 Constipation, unspecified; Z79.01 Long term (current) use of anticoagulants; Z79.4 Long term (current) use of insulin; Z96.651 Presence of right artificial knee joint; Z79.899 Other long term (current) drug therapy; Z86.718 Personal history of other venous thrombosis and embolism